=== PATIENT | male | born 1945 | race Caucasian/White ===

== ENCOUNTER → 2023-05-05 10:32 | Outpatient (REF) | payer MEDICARE, OTHER, SELFPAY ==
[2023-05-05 11:05] LABS: % Basophils 0.7 % (0-2); % Eosinophils 3.6 % (0-6); % Immature Granulocytes 0.2 % (0-0.5); % Lymphocytes 19.5 % (20.5-51.1); % Monocytes 8.2 % (1.7-9.3); % Neutrophils 67.8 % (42.2-75.2); Absolute Eosinophils 0.2 10^3/uL (0-0.7); Absolute Lymphocytes 1.1 10^3/uL (1.2-3.4); Absolute Monocytes 0.5 10^3/uL (0.1-0.6); Absolute Neutrophils 3.7 10^3/uL (1.4-6.5); Hematocrit 48.4 % (39.0-52.0); Hemoglobin 16.3 g/dL (13.0-18.0); Mean Corp Hgb Conc. 33.7 g/dL (33.0-37.0); Mean Corpuscular Hgb 30.9 pg (27.0-31.0); Mean Corpuscular Volume 91.7 fL (80.0-94.0); Mean Platelet Volume 9.8 fL (7.4-10.4); Nucleated Red Blood Cells % 0 % (-); Platelet Count 179 10^3/uL (130-400); Red Blood Cell Count 5.28 10^6/uL (4.70-6.10); Red Cell Dist. Width 13.7 % (11.5-14.5); White Blood Cell Count 5.5 10^3/uL (4.8-10.8)
[2023-05-05 11:38] LABS: Glycohemoglobin (HgbA1c) 6.6 % (4.0-5.6)
[2023-05-05 12:24] LABS: ALT (SGPT) 38 U/L (0-50); AST (SGOT) 47 U/L (17-59); Albumin 4.4 g/dl (3.5-5.0); Alkaline Phosphatase 73 U/L (38-126); Blood Urea Nitrogen 22 mg/dl (9-20); Calcium 9.5 mg/dl (8.4-10.2); Carbon Dioxide 25 mmol/L (22-30); Chloride 104 mmol/L (98-107); Glucose 98 mg/dl (70-99); HDL Cholesterol 57 mg/dl; LDL Cholesterol, Calculated 37 mg/dl; Potassium 5.2 mmol/L (3.5-5.1); Sodium 137 mmol/L (135-145); Total Cholesterol 109 mg/dl (50-199); Total Protein 7.6 g/dl (6.3-8.2); Triglyceride 78 mg/dl (10-149); Very Low Density Lipoprotein 15 mg/dl (0-30); eGFR > 60.00
[2023-05-05 12:53] LABS: PSA, Total - Screen 0.92 ng/ml (0.0-4.0)
== END ==
LOC: REG 10:32
PROVIDERS: ATTENDING PHYSICIAN Internal Medicine
DX: E11.40 Type 2 diabetes mellitus with diabetic neuropathy, unspecified (principal); E11.59 Type 2 diabetes mellitus with other circulatory complications; E78.5 Hyperlipidemia, unspecified; E66.3 Overweight; Z12.5 Encounter for screening for malignant neoplasm of prostate; Z00.01 Encounter for general adult medical examination with abnormal findings
CPT/HCPCS: 36415; 80053; 80061; 83036; 85025; G0103

== ENCOUNTER → 2023-06-23 13:57 | Outpatient (REF) | payer MEDICARE, OTHER, SELFPAY | LOC: RAD 13:57 | PROVIDERS: ATTENDING PHYSICIAN Podiatrist Foot Surgery; FAMILY PHYSICIAN Internal Medicine | DX: R22.42 Localized swelling, mass and lump, left lower limb (principal) | CPT/HCPCS: 93971 ==

== ENCOUNTER → 2023-08-18 07:53 | Outpatient (REF) | payer MEDICARE, OTHER, SELFPAY ==
[2023-08-18 08:56] LABS: Glycohemoglobin (HgbA1c) 6.8 % (4.0-5.6)
[2023-08-18 09:11] LABS: ALT (SGPT) 21 U/L (0-50); AST (SGOT) 26 U/L (17-59); Alkaline Phosphatase 76 U/L (38-126); Direct Bilirubin 0.4 mg/dl (0.0-0.4); Glucose 132 mg/dl (70-99); HDL Cholesterol 49 mg/dl; LDL Cholesterol, Calculated 49 mg/dl; Total Bilirubin 0.6 mg/dl (0.2-1.3); Total Cholesterol 117 mg/dl (50-199); Total Protein 7.3 g/dl (6.3-8.2); Triglyceride 97 mg/dl (10-149); Very Low Density Lipoprotein 19 mg/dl (0-30)
== END ==
LOC: REG 07:53
PROVIDERS: ATTENDING PHYSICIAN Internal Medicine
DX: E11.40 Type 2 diabetes mellitus with diabetic neuropathy, unspecified (principal)
CPT/HCPCS: 36415; 80061; 80076; 82947; 83036

== ENCOUNTER → 2023-11-18 07:32 | Outpatient (REF) | payer MEDICARE, OTHER, SELFPAY ==
[2023-11-18 11:05] LABS: ALT (SGPT) 24 U/L (0-50); AST (SGOT) 29 U/L (17-59); Albumin 4.5 g/dl (3.5-5.0); Alkaline Phosphatase 72 U/L (38-126); Direct Bilirubin 0.3 mg/dl (0.0-0.4); Glucose 160 mg/dl (70-99); HDL Cholesterol 54 mg/dl; LDL Cholesterol, Calculated 47 mg/dl; Total Bilirubin 0.7 mg/dl (0.2-1.3); Total Cholesterol 121 mg/dl (50-199); Total Protein 7.4 g/dl (6.3-8.2); Triglyceride 102 mg/dl (10-149); Very Low Density Lipoprotein 20 mg/dl (0-30)
[2023-11-18 12:15] LABS: Glycohemoglobin (HgbA1c) 6.1 % (4.0-5.6)
== END ==
LOC: REG 07:32
PROVIDERS: ATTENDING PHYSICIAN Internal Medicine
DX: E11.40 Type 2 diabetes mellitus with diabetic neuropathy, unspecified (principal); E78.5 Hyperlipidemia, unspecified; I10 Essential (primary) hypertension
CPT/HCPCS: 36415; 80061; 80076; 82947; 83036

== ENCOUNTER → 2024-02-23 09:01 | Outpatient (REF) | payer MEDICARE, OTHER, SELFPAY | LOC: DHVS 09:01 | PROVIDERS: ATTENDING PHYSICIAN Surgery Vascular Surgery; FAMILY PHYSICIAN Internal Medicine; REFERRING PHYSICIAN Student in an Organized Health Care Education/Training Program | DX: I73.9 Peripheral vascular disease, unspecified (principal) | CPT/HCPCS: 93922; 93925 ==

== ENCOUNTER → 2024-03-31 17:12 | Outpatient (REF) | payer MEDICARE, OTHER, SELFPAY ==
[2024-03-31 17:38] LABS: % Basophils 0.3 % (0-2); % Eosinophils 1.7 % (0-6); % Immature Granulocytes 0.4 % (0-0.5); % Lymphocytes 5.1 % (20.5-51.1); % Monocytes 7.6 % (1.7-9.3); % Neutrophils 84.9 % (42.2-75.2); Absolute Eosinophils 0.1 10^3/uL (0-0.7); Absolute Lymphocytes 0.4 10^3/uL (1.2-3.4); Absolute Monocytes 0.6 10^3/uL (0.1-0.6); Absolute Neutrophils 6.1 10^3/uL (1.4-6.5); Hematocrit 48.8 % (39.0-52.0); Hemoglobin 16.6 g/dL (13.0-18.0); Mean Corpuscular Hgb 31.7 pg (27.0-31.0); Mean Corpuscular Volume 93.1 fL (80.0-94.0); Mean Platelet Volume 9.8 fL (7.4-10.4); Nucleated Red Blood Cells % 0 % (-); Platelet Count 164 10^3/uL (130-400); Red Blood Cell Count 5.24 10^6/uL (4.70-6.10); White Blood Cell Count 7.2 10^3/uL (4.8-10.8)
[2024-03-31 17:50] LABS: ALT (SGPT) 21 U/L (0-50); AST (SGOT) 25 U/L (17-59); Albumin 4.3 g/dl (3.5-5.0); Alkaline Phosphatase 60 U/L (38-126); Amylase 64 U/L (30-110); Direct Bilirubin 0.1 mg/dl (0.0-0.4); Lipase 227 U/L (23-300); Total Bilirubin 1.3 mg/dl (0.2-1.3); Total Protein 7.4 g/dl (6.3-8.2)
== END ==
LOC: REG 17:12
PROVIDERS: ATTENDING PHYSICIAN Internal Medicine
DX: R10.13 Epigastric pain (principal)
CPT/HCPCS: 36415; 80076; 82150; 83690; 85025

== ENCOUNTER → 2024-05-11 07:52 | Outpatient (REF) | payer MEDICARE, OTHER, SELFPAY ==
[2024-05-11 08:38] LABS: % Basophils 0.6 % (0-2); % Eosinophils 2.5 % (0-6); % Immature Granulocytes 0.5 % (0-0.5); % Lymphocytes 18.4 % (20.5-51.1); % Monocytes 8.8 % (1.7-9.3); % Neutrophils 69.2 % (42.2-75.2); Absolute Eosinophils 0.2 10^3/uL (0-0.7); Absolute Lymphocytes 1.2 10^3/uL (1.2-3.4); Absolute Monocytes 0.6 10^3/uL (0.1-0.6); Absolute Neutrophils 4.4 10^3/uL (1.4-6.5); Hematocrit 45.8 % (39.0-52.0); Hemoglobin 15.4 g/dL (13.0-18.0); Mean Corp Hgb Conc. 33.6 g/dL (33.0-37.0); Mean Corpuscular Hgb 31.2 pg (27.0-31.0); Mean Corpuscular Volume 92.9 fL (80.0-94.0); Mean Platelet Volume 9.5 fL (7.4-10.4); Nucleated Red Blood Cells % 0 % (-); Platelet Count 195 10^3/uL (130-400); Red Blood Cell Count 4.93 10^6/uL (4.70-6.10); White Blood Cell Count 6.4 10^3/uL (4.8-10.8)
[2024-05-11 09:41] LABS: Glycohemoglobin (HgbA1c) 6.1 % (4.0-5.6)
[2024-05-11 10:40] LABS: Carbon Dioxide 21 mmol/L (22-30); Total Cholesterol 97 mg/dl (50-199); eGFR > 60.00
[2024-05-11 10:50] LABS: ALT (SGPT) 25 U/L (0-50); AST (SGOT) 28 U/L (17-59); Albumin 4.5 g/dl (3.5-5.0); Alkaline Phosphatase 77 U/L (38-126); Blood Urea Nitrogen 28 mg/dl (9-20); Calcium 9.4 mg/dl (8.4-10.2); Chloride 106 mmol/L (98-107); Glucose 117 mg/dl (70-99); HDL Cholesterol 48 mg/dl; LDL Cholesterol, Calculated 26 mg/dl; Potassium 4.4 mmol/L (3.5-5.1); Sodium 140 mmol/L (135-145); Total Protein 7.5 g/dl (6.3-8.2); Triglyceride 116 mg/dl (10-149); Very Low Density Lipoprotein 23 mg/dl (0-30)
[2024-05-11 10:57] LABS: PSA, Total - Screen 0.95 ng/ml (0.0-4.0)
== END ==
LOC: REG 07:52
PROVIDERS: ATTENDING PHYSICIAN Internal Medicine
DX: Z00.01 Encounter for general adult medical examination with abnormal findings (principal); E11.40 Type 2 diabetes mellitus with diabetic neuropathy, unspecified; I10 Essential (primary) hypertension; E78.5 Hyperlipidemia, unspecified; Z12.5 Encounter for screening for malignant neoplasm of prostate
CPT/HCPCS: 36415; 80053; 80061; 83036; 85025; G0103

== ENCOUNTER → 2024-06-03 11:00 | Outpatient (REF) | payer MEDICARE, OTHER, SELFPAY | LOC: RAD 11:00 | PROVIDERS: ATTENDING PHYSICIAN Internal Medicine | DX: M54.16 Radiculopathy, lumbar region (principal) | CPT/HCPCS: 72110 ==

== ENCOUNTER 2024-07-14 10:12 | Emergency (ER) | payer MEDICARE, OTHER, SELFPAY ==
[2024-07-14 10:32] VITALS: BP 159/84
--- NOTE | 2024-07-14 12:01 | ED.MUSCINJ ---
HPI-Injury
General
Chief Complaint: Musculo-Skeletal Complaint
Source: patient
Exam Limitations: none
Time Seen by Provider: 07/14/24 11:38
History of Present Illness-Injury
Initial Injury comments:
78-year-old male presents complaining of severe pain to the neck. It starts at the base of the neck and radiates up to the left side of his skull. It hurts to move his neck. No fever no vision change. No arm pain or numbness. No chest pain or
shortness of breath. He is on Eliquis. No known injury. No other complaints at this time
Past History
Past History
ED Past Medical History: Arrthythmia (Atrial fibrillation), CVA, Hypercholesterolemia, NIDDM and Other (Psoriasis, lumbar disc herniations, kidney stones, BPH, TIA, pneumonia)
ED Past Surgical History: Cholecystectomy, Orthopedic and Urological
Social History
Tobacco: Non-smoker
Alcohol: None
Drug: None
Personal:
Living: with family
Phy Exam
Physical Exam
Physical Exam:
General: Uncomfortable appearing male no acute respiratory distress
HEENT: Normocephalic atraumatic
Musculoskeletal exam: The patient is tender over the paraspinous area mainly on the left of the cervical spine from the base of cervical spine to the base of the skull. He has significantly decreased motion of the neck secondary to his pain
Heart: Regular rate and rhythm
Lungs: Clear no wheeze
Neurologic exam: Normal gait conversing appropriately. Good strength to the upper extremities
Injury Course
Orders/Labs/Results
Orders:
Orders
07/14/24 11:57
Dexamethasone Sod Phosphate [Decadron] 10 mg IV NOW STA
diazePAM [Valium Injection] 5 mg IV NOW STA
MDM/Problems Addressed
Differential Diagnosis Includes:
Neck pain. Consider muscular strain or spasm versus radiculopathy. No rash to suggest shingles. No neurologic deficit otherwise. Will attempt to manage symptoms
Patient had discussion with his family doctor. He has had prednisone in the past. Patient did not feel well during the prednisone course but he is willing to try again secondary to the amount of pain he is in. He does have an appointment with
Yany in 4 days from now.
*Critical Care Note
Total Time (30-74mins, 75-104mins- exclusive of procedures): Not Applicable
Update Note
Update Note:
Patient feeling slightly improved after medicine administered here. Will continue with muscle relaxer and a steroid at home.
Cervical strain versus radiculopathy
Patient has no neurologic deficit otherwise. No indication for any imaging at this time
ED Attending Note
-
Portions of this chart may have been created with voice recognition software.� Occasional wrong word or��sound alike� substitutions may have occurred due to the inherent limitations of voice recognition software.
Discharge Plan
Departure
Patient Disposition: Home (Routine Discharge)
Date of Disposition: 07/14/24
Time of Disposition: 14:21
Patient with high blood pressure during this ER visit?: No
Discharge Problem:
Cervical strain
Prescriptions:
New
methylprednisolone [Medrol (Phill)] 4 mg tablets,dose pack
4 mg PO DAILY Qty: 21 0RF
diazepam [Valium] 5 mg tablet
5 mg PO TID PRN (Reason: spasm) Qty: 10 0RF
No Action
metformin 500 MG tablet
1,000 mg PO BID@0800,1700
allopurinol 300 MG tablet
300 mg PO HS
finasteride 5 MG tablet
5 mg PO DAILY
glimepiride 4 MG tablet
8 mg PO DAILY
atropine 1 DROP drops
1 drp RIGHT EYE DAILY
Eliquis 5 MG tablet
5 mg PO BID
Trulicity 0.75 MG/0.5 ML pen injector
3 mg SQ MO
prednisolone acetate (PF) 5 ML drops,suspension
1 drp RIGHT EYE DAILY
tamsulosin 0.4 MG capsule
0.4 mg PO QPM
pregabalin [Lyrica] 300 mg Capsule
300 mg PO BID@0800,1700
Jardiance 25 mg Tablet
25 mg PO DAILY
simvastatin 20 mg Tablet
20 mg PO HS
Theralith XR 3.75-45-45-49.5 mg Tablet Extended Release
2 tab PO BID
coQ10 (ubiquinol) 100 mg Capsule
100 mg PO HS
amoxicillin-pot clavulanate [Augmentin] 875-125 mg Tablet
1 tab PO BID
Referrals:
Chuck Durand MD [Family Provider] -
Activity Restrictions/Additional Instructions:
Continue with warm compresses. Use muscle relaxer and steroid as directed. Follow-up with your back pain specialist as planned
Interventions
Interventions:
*Risk Screen - Suicide Last Done: 07/14/24 10:32
*General Assessment Last Done: 07/14/24 10:32
*Neglect/Abuse Screening Last Done: 07/14/24 13:49
*ED COVID-19 Vaccine History Last Done: 07/14/24 10:32
ED-Musculoskeletal Assessment Last Done: 07/14/24 13:47
Discharge Date and Time
Print Language: MALTESE
[2024-07-14] MEDS: DECADRON 10 MG IV (13:33)
[2024-07-14] MEDS: VALIUM INJECTION 5 MG IV (13:33)
[2024-07-14 13:48] VITALS: BP 159/79
[2024-07-14 15:00] VITALS: BP 139/72
[2024-07-14 16:00] VITALS: BP 135/75
== END 2024-07-14 16:40 | disposition home or self-care (01) ==
LOC: EMR 10:12
PROVIDERS: EMERGENCY PHYSICIAN Emergency Medicine; FAMILY PHYSICIAN Internal Medicine
DX: S16.1XXA Strain of muscle, fascia and tendon at neck level, initial encounter (principal); X58.XXXA Exposure to other specified factors, initial encounter; I48.91 Unspecified atrial fibrillation; E78.00 Pure hypercholesterolemia, unspecified; E11.9 Type 2 diabetes mellitus without complications; N40.0 Benign prostatic hyperplasia without lower urinary tract symptoms; Z79.01 Long term (current) use of anticoagulants; Z86.73 Personal history of transient ischemic attack (TIA), and cerebral infarction without residual deficits; Z87.442 Personal history of urinary calculi; Z90.49 Acquired absence of other specified parts of digestive tract
CPT/HCPCS: 99282; 96374; 96375

== ENCOUNTER → 2024-07-22 10:30 | Outpatient (REF) | payer MEDICARE, OTHER, SELFPAY | LOC: PAVMRI 10:30 | PROVIDERS: ATTENDING PHYSICIAN Physician Assistant; FAMILY PHYSICIAN Internal Medicine | DX: M54.12 Radiculopathy, cervical region (principal) | CPT/HCPCS: 72141 ==

== ENCOUNTER → 2024-08-29 08:39 | Outpatient (REF) | payer MEDICARE, OTHER, SELFPAY ==
[2024-08-29 10:49] LABS: Glycohemoglobin (HgbA1c) 6.9 % (4.0-5.6)
[2024-08-29 10:53] LABS: ALT (SGPT) 18 U/L (0-50); AST (SGOT) 23 U/L (17-59); Albumin 4.1 g/dl (3.5-5.0); Alkaline Phosphatase 63 U/L (38-126); Direct Bilirubin 0.3 mg/dl (0.0-0.4); Glucose 88 mg/dl (70-99); HDL Cholesterol 63 mg/dl; LDL Cholesterol, Calculated 26 mg/dl; Total Bilirubin 0.7 mg/dl (0.2-1.3); Total Cholesterol 105 mg/dl (50-199); Total Protein 6.9 g/dl (6.3-8.2); Triglyceride 84 mg/dl (10-149); Very Low Density Lipoprotein 16 mg/dl (0-30)
== END ==
LOC: REG 08:39
PROVIDERS: ATTENDING PHYSICIAN Internal Medicine
DX: E11.59 Type 2 diabetes mellitus with other circulatory complications (principal); E66.3 Overweight; E78.5 Hyperlipidemia, unspecified; I10 Essential (primary) hypertension
CPT/HCPCS: 36415; 80061; 80076; 82947; 83036

== ENCOUNTER → 2024-08-30 08:51 | Outpatient (REF) | payer MEDICARE, OTHER, SELFPAY | LOC: RAD 08:51 | PROVIDERS: ATTENDING PHYSICIAN Podiatrist Foot Surgery; FAMILY PHYSICIAN Internal Medicine; REFERRING PHYSICIAN Student in an Organized Health Care Education/Training Program | DX: M86.171 Other acute osteomyelitis, right ankle and foot (principal) | CPT/HCPCS: 78315; A9503 ==

== ENCOUNTER → 2024-09-06 06:53 | Outpatient (REF) | payer MEDICARE, OTHER, SELFPAY | LOC: RAD 06:53 | PROVIDERS: ATTENDING PHYSICIAN Podiatrist Foot Surgery; FAMILY PHYSICIAN Internal Medicine | DX: M86.171 Other acute osteomyelitis, right ankle and foot (principal) | CPT/HCPCS: 78803; A9569 ==

== ENCOUNTER 2024-09-21 03:10 | Inpatient (IN) | payer MEDICARE, OTHER, SELFPAY ==
[2024-09-20 16:44] VITALS: BP 139/66
[2024-09-20 17:08] LABS: Hematocrit 39.4 % (39.0-52.0); Hemoglobin 13.3 g/dL (13.0-18.0); Mean Corp Hgb Conc. 33.8 g/dL (33.0-37.0); Mean Corpuscular Volume 92.5 fL (80.0-94.0); Nucleated Red Blood Cells % 0 % (-); Platelet Count 165 10^3/uL (130-400); Red Cell Dist. Width 13.9 % (11.5-14.5)
[2024-09-20 17:33] LABS: ALT (SGPT) 17 U/L (0-50); AST (SGOT) 17 U/L (17-59); Albumin 4.1 g/dl (3.5-5.0); Alkaline Phosphatase 58 U/L (38-126); Blood Urea Nitrogen 24 mg/dl (9-20); Calcium 9.2 mg/dl (8.4-10.2); Carbon Dioxide 20 mmol/L (22-30); Chloride 106 mmol/L (98-107); Glucose 183 mg/dl (70-99); Potassium 4.4 mmol/L (3.5-5.1); Sodium 135 mmol/L (135-145); Total Protein 7.0 g/dl (6.3-8.2); eGFR > 60.00
--- NOTE | 2024-09-20 20:37 | ED.GENMED ---
Addendum entered and electronically signed by Malick Xie DO 09/21/24 02:21:
78-year-old male with diagnosis of osteomyelitis at cellulitis to his right foot. He is due for an amputation of his fifth metatarsal with Dr. Best. Hospitalist requested formal signout for admission. I was in to see the patient.
Original Note:
History of Present Illness
General
Chief Complaint: Skin Problem
Source: patient
Exam Limitations: none
Time Seen by Provider: 09/20/24 20:12
Nursing documentation reviewed up to this point in time: agreed with
History of Present Illness
History of Present Illness:
Patient to ED for increasing pain, redness, swelling to right foot. He has a small ulceration to right lat foot at distal 5th metatarsal FOllows with Dr. Best. He had an outpatient xray last month that revealed suspected osteomyelitis to site
He states he was in the process of scheduling an amputaton of the 5ht metatarsal with Dr. Best. 2 days ago he reports the pain redness and swelling started. Draining small hema of purulent discharge, would culture obtained. He denies
fever/chills. On eliquis for afib.
Past History
Past History
ED Past Medical History: Arrthythmia (Atrial fibrillation), CVA, Hypercholesterolemia, NIDDM and Other (Psoriasis, lumbar disc herniations, kidney stones, BPH, TIA, pneumonia)
ED Past Surgical History: Cholecystectomy, Orthopedic and Urological
Social History
Tobacco: Non-smoker
Alcohol: None
Drug: None
Personal:
Living: with family
Review of Systems
Review of Systems
Allergies reviewed?: Yes
All Other Systems: ROS reviewed and negative except as documented in HPI and ROS
Constitutional: Reports no symptoms
EENT: Reports no symptoms
Respiratory: Reports no symptoms
Cardiac: Reports no symptoms
ABD/GI: Reports no symptoms
: Reports no symptoms
Musculoskeletal: Reports joint pain (pain to lateral right foot.)
Skin: Reports other (Erythema swelling pain to right lat foot. Non healing wound right lat foot at distal 5th metatarsal.)
Neurological: Reports no symptoms
Psychiatric: Reports no symptoms
Phy Exam
General Physical Exam
General Presentation: mild distress
General age: appears stated age
General Skin: warm and dry
General Habitus: normal
General Mental: alert
Musculoskeletal Exam
Musculoskeletal Exam: neuro vasc intact and other (pain to right foot)
Skin Exam
Skin Exam: other (Erythema swelling right foot. Non healing wound distal lateral right foot)
Psychiatric Exam
Psychiatric Exam: normal mood/affect
Course
Orders/Labs/Results
Orders:
Orders
09/20/24 16:59
Complete Blood Count/With Diff Urgent
Comprehensive Metabolic Panel Urgent
Blood Culture Q20M
JOAN Source: Blood/Venous
Specimen Description:
Comment: Urgent from separate sites. If patient screens positive for possible sepsis
09/20/24 20:37
Vancomycin [Vancocin] 2,000 mg 0.9% Sodium Chloride 500 ml [Nss] 500 ml IV NOW
09/20/24 20:42
Lactic Acid Urgent
Blood Culture Q20M
JOAN Source: Blood/Venous
Specimen Description:
Comment: Urgent from separate sites. If patient screens positive for possible sepsis
Wound Culture [Wound/Abscess/Other Culture] Urgent
JOAN Source: Foot
Specimen Description: Right
Date Specimen was Collected: 09/20/24
Time Specimen was Collected: 20:39
09/20/24 20:56
Foot, Right 3 View [CR Foot - Right Min 3 Views] Urgent
Comment:
Reason For Exam: cellulitis
09/20/24 22:25
Consult Orthopedic [ORTHOPEDIC CONSULT] Urgent
Consulting Provider: Maurisio Julian
Was physician already notified: Yes
Abnormal Lab Results
09/20/24
16:59
WBC 14.3 H 10^3/uL
(4.8-10.8)
RBC 4.26 L 10^6/uL
(4.70-6.10)
MCH 31.2 H pg
(27.0-31.0)
Abs Immat Gran (auto) 0.1 H 10^3/uL
(0-0.05)
Absolute Neuts (auto) 11.8 H 10^3/uL
(1.4-6.5)
Absolute Lymphs (auto) 0.8 L 10^3/uL
(1.2-3.4)
Absolute Monos (auto) 1.5 H 10^3/uL
(0.1-0.6)
Neutrophils % 82.6 H %
(42.2-75.2)
Lymphocytes % 5.6 L %
(20.5-51.1)
Monocytes % 10.4 H %
(1.7-9.3)
Carbon Dioxide 20 L mmol/L
(22-30)
BUN 24 H mg/dl
(9-20)
Glucose 183 H mg/dl
(70-99)
09/20/24 16:59
09/20/24 16:59
Vital Signs
Initial and Last Documented VS:
Initial Vital Signs
Temp Pulse Resp BP Pulse Ox
98.2 F 79 16 139/66 98
09/20/24 16:44 09/20/24 16:44 09/20/24 16:44 09/20/24 16:44 09/20/24 16:44
Last Documented Vital Signs
Temp Pulse Resp BP Pulse Ox
98.2 F 80 16 126/72 96
09/20/24 16:44 09/20/24 20:52 09/20/24 20:52 09/20/24 20:52 09/20/24 20:52
*Radiology
Radiology exam reviewed: radiology read reviewed
*Pulse Oximetry
SaO2: 98
Oxygen Mode of Delivery: Room air
Patient hypoxic: no
*Critical Care Note
Total Time (30-74mins, 75-104mins- exclusive of procedures): Not Applicable
Update Note
Update Note:
Patient to ED with pain redness swelling to right foot. Nonhealing wouond to lateral aspect of right foot at head of 5th metatarsal. Xray completed, suspect worsening osteomyelitis, cellulitis. Will admit to hospitalist service. Antibiotics
started in dept. WOuond culture results are pending.
ED Attending Note
-
Portions of this chart may have been created with voice recognition software.� Occasional wrong word or��sound alike� substitutions may have occurred due to the inherent limitations of voice recognition software.
Discharge Plan
Departure
Patient Disposition: Admit
Date of Disposition: 09/20/24
Time of Disposition: 22:18
Presentation/result/management discussed w/ accepting MD/DO: Hospitalist
Patient with high blood pressure during this ER visit?: No
Condition: Fair
Covid-19: Not Applicable
Discharge Problem:
Cellulitis of foot, Acute osteomyelitis of metatarsal bone
Prescriptions:
No Action
allopurinol 300 MG tablet
300 mg PO HS
finasteride 5 MG tablet
5 mg PO DAILY
glimepiride 4 MG tablet
8 mg PO DAILY
Eliquis 5 MG tablet
5 mg PO BID
tamsulosin 0.4 MG capsule
0.8 mg PO QPM
Jardiance 25 mg Tablet
25 mg PO DAILY
simvastatin 20 mg Tablet
20 mg PO HS
acetaminophen [Tylenol 8 Hour] 650 mg Tablet Extended Release
1,300 mg PO Q8HPRN PRN (Reason: mild pain)
dorzolamide-timolol 22.3-6.8 mg/mL drops
1 drp RIGHT EYE BID
metformin 500 mg tablet extended release 24 hr
1,000 mg PO BID
coenzyme Q10 [CoQ-10] 100 mg Capsule
100 mg PO HS
pregabalin 300 mg capsule
300 mg PO BID
Ozempic 1 mg/dose (4 mg/3 mL) Pen Injector
1 mg SC BYRNES
Referrals:
Chuck Durand MD [Family Provider, Internal Medicine]
Interventions
Interventions:
*Risk Screen - Suicide Last Done: 09/20/24 16:44
*General Assessment Last Done: 09/20/24 19:54
*Neglect/Abuse Screening Last Done: 09/20/24 16:44
*ED- Fall Risk Assessment Last Done: 09/20/24 19:54
*ED COVID-19 Vaccine History Last Done: 09/20/24 19:54
Discharge Date and Time
Print Language: ROMANSH
[2024-09-20 20:52] VITALS: BP 126/72; BMI 30.4
[2024-09-20] MEDS: VANCOCIN 540 MG IV (21:03)
[2024-09-21] VITALS (9 sets, daily range): BP systolic 114–162; BP diastolic 69–85; BMI 28.0
--- NOTE | 2024-09-21 02:45 | HPS.HSE ---
Family Physician
-
Family Physician: Sloan Durand
Chief Complaint
-
RLE swelling
History of Present Illness
78yo M with PMHx of L foot OM s/p toe amputation, gout, BPH, DM, HLD, Afib on Eliquis came with worsening swelling in his R foot. XR showed Soft tissue wound lateral to the right 5th MTP joint and probable acute on chronic OM in the 5th metatarsal.
Patient was previously followed by and planned for eventual amputation by as per his words. Also developed 2days of cough and chills
Medical History
Past Medical History
Past Medical History: Reports Other
Additional Past Medical History:
See HPI
Past Surgical History: Reports Other
Additional Past Surgical History:
See HPI
Social History
Tobacco: Non-smoker
Alcohol: None
Drug: None
Family History
Family History: Not pertinent
Allergies / Home Medications
Allergies reflects when Allergies were last updated in [facility].
Home Medications with original date entered in [facility]
Allergy/Medication List:
Allergies
Allergy/AdvReac Type Severity Reaction Status Date / Time
apple Allergy TONGUE Verified 09/20/24 16:44
SWELLS
gabapentin Allergy 'didn't Verified 09/20/24 16:44
work &
loss of
appetite'
Gadolinium-Containing Allergy Rash Verified 09/20/24 16:44
Contrast Medi
grape Allergy TONGUE Verified 09/20/24 16:44
SWELLS
iohexol Allergy Rash Verified 09/20/24 16:44
peach Allergy TONGUE Verified 09/20/24 16:44
SWELLS
pectin Allergy PATIENT Verified 09/20/24 16:44
DENIES
Home Medications
allopurinol 300 mg tablet 300 mg PO HS Gout 05/28/12
finasteride 5 mg tablet 5 mg PO DAILY Urinary issue 05/28/12
glimepiride 4 mg tablet 8 mg PO DAILY Diabetes 05/29/15
apixaban 5 mg tablet (Eliquis) 5 mg PO BID Blood clot prevention/tx 08/22/18
empagliflozin 25 mg tablet (Jardiance) 25 mg PO DAILY Diabetes 03/05/22
simvastatin 20 mg tablet 20 mg PO HS High cholesterol 03/05/22
tamsulosin 0.4 mg capsule 0.8 mg PO QPM Urinary issue 03/05/22
acetaminophen 650 mg tablet,extended release (Tylenol 8 Hour) 1,300 mg PO Q8HPRN PRN mild pain 09/20/24
coenzyme Q10 100 mg capsule (CoQ-10) 100 mg PO HS 09/20/24
dorzolamide 22.3 mg-timolol 6.8 mg/mL eye drops 1 drp RIGHT EYE BID 09/20/24
metformin 500 mg tablet,extended release 24 hr 1,000 mg PO BID 09/20/24
pregabalin 300 mg capsule 300 mg PO BID 09/20/24
semaglutide 1 mg/dose (4 mg/3 mL) subcutaneous pen injector (Ozempic) 1 mg SC BYRNES 09/20/24
Review of Systems
-
History Source: Patient
A 12 point ROS was completed and negative except as noted: Yes
Musculoskeletal: Reports See HPI
Physical Exam
Vital Signs
Vital Signs
Temp Pulse Resp BP Pulse Ox
100.2 F 80 16 131/69 97
09/20/24 23:30 09/20/24 20:52 09/20/24 20:52 09/21/24 01:00 09/21/24 01:00
Physical Exam
General: Well Nourished, No Apparent Distress and Comfortable
HEENT: NormoCephalic, Anicteric and Moist mucous membranes
Respiratory: Clear; No Wheezes or Crackles
Cardiac: S1/S2 and Regular Rhythm; No Murmur
GI: Soft, Non Tender and Non Distended
Genito-urinary: No costovertebral tender
Musculoskeletal: No Clubbing, No Cyanosis and Edema, Right Lower Extremity
Skin: Warm
Neuro: Awake, Alert, Oriented, AO x 3 and No Motor Deficits
Psych: Calm
Laboratory Results
-
09/20/24 16:59
09/20/24 16:59
Laboratory Results
Lactic Acid 1.4 mmol/L (0.7-2.0) 09/20/24 20:42
Total Bilirubin 1.1 mg/dl (0.2-1.3) 09/20/24 16:59
AST 17 U/L (17-59) 09/20/24 16:59
ALT 17 U/L (0-50) 09/20/24 16:59
Alkaline Phosphatase 58 U/L (38-126) 09/20/24 16:59
Data Reviewed
-
Diagnostic Radiology: Report Reviewed by me
Lab Data: Labs Reviewed by me
Impression/Plan
-
A/P:
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
MRI foot
Vanco/Zosyn
Podiatry consult
Bcx
ESR/CRP for monitoring
#Cough
chest XR
COVID-19 and influenza swab
#Afib, unspecified
Cont Eliquis
tele
#DM type 2 with neuropathy
Insulin SS, hold Metformin, glimeperide, cont Jardiance
cotn Lytica
#BPH
#HLD
#Gout
#Glaucoma
cont meds, watch for retention
DVT ppx eliquis
Full code
I have spent at least 76min admitting the patient
[2024-09-21] MEDS: ZOSYN 50 IV ×4 (03:22→21:28)
[2024-09-21 03:33] LABS: COVID-19 Antigen Negative (Negative)
[2024-09-21] MEDS: TYLENOL 650 MG PO ×3 (04:14→21:28)
--- NOTE | 2024-09-21 04:30 | PTCARENOTE ---
Pt arrived to 419-02 from ED, pullover assist x1 into bed. VSS, AAOx3, 4/10 pain to right 5th toe but denies needing pain meds. Pt oriented to room, call paul in reach. POC reviewed with pt.
[2024-09-21 07:02] LABS: Glucose - Point of Care 133 mg/dl (70-99)
[2024-09-21] MEDS: NOVOLOG FLEXPEN-MODERATE RESISTANCE SC ×3 (07:48→17:21)
[2024-09-21] MEDS: FARXIGA 10 MG PO (07:55)
[2024-09-21] MEDS: ELIQUIS 5 MG PO (07:55)
[2024-09-21] MEDS: PROSCAR 5 MG PO (07:55)
[2024-09-21] MEDS: TIMOPTIC 0.5% OPHTHALMIC SOLUTION 1 DROP RIGHT EYE ×2 (07:56→21:16)
[2024-09-21] MEDS: TRUSOPT 2% OPHTHALMIC SOLUTION 1 DROP RIGHT EYE ×2 (07:56→21:17)
[2024-09-21] MEDS: LYRICA 300 MG PO ×2 (07:56→21:16)
[2024-09-21 08:08] LABS: Hematocrit 37.1 % (39.0-52.0); Hemoglobin 12.5 g/dL (13.0-18.0); Mean Corp Hgb Conc. 33.7 g/dL (33.0-37.0); Mean Corpuscular Volume 91.6 fL (80.0-94.0); Nucleated Red Blood Cells % 0 % (-); Platelet Count 166 10^3/uL (130-400); Red Cell Dist. Width 13.8 % (11.5-14.5)
--- NOTE | 2024-09-21 08:15 | WOUNDNOTE ---
R FOOT (LATERAL 5TH MTH)
--- NOTE | 2024-09-21 08:16 | WOUNDNOTE ---
R FOOT (LATERAL 5TH MTH)
--- NOTE | 2024-09-21 08:18 | WOUNDNOTE ---
[facility] RN note: Patient admitted with osteomyelitis. Patient follows Dr. Jon who is on consult.
See H&P for complete history.
PMH: kidney stone, L ureteral stent, neuropathy (patient wears a brace during ambulation LLE), arthritis, sciatica, DM, osteomyelitis.
Wound Location and type/assessment: Patient admitted with: full thickness diabetic ulcer R lateral 5th MTH with yellow tissue and small purulent drainage. +Diffuse erythema of R foot around ulcer/dorsal foot. +Palpable pedal pulses. He follows
[facility]. 02/2024 Arterial Doppler: R TBI .76, L TBI .61.
Appetite: on 1999 calorie diet.
Pressure redistribution devices in place: [employer] Accumax. Patient moves self in bed. He wears off loading orthotic insert in his R shoe.
Plan: Dressing changed. Heels off bed with pillow. Instructed patient pressure injury prevention measures. Wound to be managed by surgeon. Will sign off, call if needed.
Patient to follow up with Dr. Best and vascular.
[2024-09-21 08:33] LABS: ALT (SGPT) 14 U/L (0-50); AST (SGOT) 15 U/L (17-59); Albumin 3.4 g/dl (3.5-5.0); Alkaline Phosphatase 56 U/L (38-126); Blood Urea Nitrogen 19 mg/dl (9-20); Calcium 8.8 mg/dl (8.4-10.2); Carbon Dioxide 20 mmol/L (22-30); Chloride 109 mmol/L (98-107); Estimated Creatinine Clearance 65 ml/min; Glucose 136 mg/dl (70-99); Potassium 3.5 mmol/L (3.5-5.1); Sodium 138 mmol/L (135-145); Total Protein 6.0 g/dl (6.3-8.2); eGFR > 60.00
[2024-09-21 08:58] LABS: C-Reactive Protein 192.10 mg/L (0.0-10.00)
--- NOTE | 2024-09-21 09:46 | PHA.VAN.IN ---
Assessment
- Assessment
Renal Function: Appears similar to baseline
Concomitant Antimicrobials: piperacillin/tazobactam
- Previous Dosing Experience
Previous Regimen: Vanc 1000mg Q12H
Date of Regimen: August 2018 (6 years prior)
Provided Trough of: 11 - drawn prior to 4th maintenance dose (~11H after previous dose)
Patient's SCR is: Similar to previous dosing experience
Patient's weight is: Similar to previous dosing experience
AUC Dosing Plan
- Dosing Variables
Dosing Weight (kg): 88.5
Dosing CrCl (ml/min): 65
Vd coefficient (L/kg): 0.7
- Empiric Dosing
Initial / Loading Dose: 2000mg - 09/20 21:03
Maintenance Regimen: Vanc 1000mg Q12H starting at 1800
Estimated AUC (mcg*h/mL): 569
Estimated Peak (mcg*h/mL): 32.1
Estimated Trough (mcg/ml): 16.9
Estimated Half Life (H): 11.9
Will start 1000mg Q12H based on current population PK and prior dosing experience
Dosing experience from about 6 years ago but patient's weight and renal function appear relatively similar
May require reduction to Vanc 750mg Q12H
Follow SCR trend
- Monitoring
No levels ordered at this time: consider levels in next few days
Pharmacokinetics Vancomycin I
- -
Patient Age: 78
Patient Sex: Male
Vancomycin Day #: 1
Indication: [facility]
Requesting Provider: Dr. Squires
Pertinent Antimicrobial Allergies:
no pertinent antibiotic allergies
Height / Weight:
Height 5 ft 10 in
Actual Weight 88.507 kg
Pertinent Past Medical History: DM II
- Vital Signs / Lab Results
Temp Pulse Resp BP Pulse Ox
98.0 F 69 18 121/71 99
09/21/24 07:00 09/21/24 07:00 09/21/24 07:00 09/21/24 07:00 09/21/24 07:00
Lab Results - Hematology
09/20/24 09/21/24
16:59 06:48
WBC 14.3 H 12.0 H
Lab Results - Chemistry
09/20/24 09/21/24
16:59 06:48
BUN 24 H 19
Creatinine 1.0 1.0
Estimated Creat Clear 65
Albumin 4.1 3.4 L
09/20/24
20:42
Lactic Acid 1.4
Microbiology Results
09/21/24 02:52 Influenza Types A & B (JONATHON) - Final
Nasal Swab Negative for Influenza A & B, NAAT
Negative results must be combined with clinical observations
and patient history.
Nucleic Acid Amplification test (NAAT)performed on the
[employer] NOW platform.
--- NOTE | 2024-09-21 13:12 | W.PN.UPDATE ---
Update Note
Progress Note Update
Patient with right 5th metatarsal ulceration
-Luekocytosis impoving on ABx
-Prior outpatient bone scans show concern for OM of right 5th met head
-Obtain Right foot MRI
-Likely need for partial 5th ray amputation
-Full consult to follow
[2024-09-21 13:29] LABS: Glucose - Point of Care 126 mg/dl (70-99)
[2024-09-21 13:56] LABS: Glycohemoglobin (HgbA1c) 6.2 % (4.0-5.6)
--- NOTE | 2024-09-21 14:16 | CON.ID ---
Consultation
-
Date/Time Consultation Requested: September 21, 2024 1204
Date/Time Consultation Performed: September 21, 2024 1415
Requesting Provider: Dr. Satish Justice
Performing Provider: Dr. Tania Fuentes
Reason for Consultation: Right foot osteo, bacteremia, pneumonia
Chief Complaint / Past History
Chief Complaint
Right foot redness and swelling
History of Present Illness
78-year-old male with history of diabetes mellitus, A-fib, gout who presented to the hospital on September 20 due to acute onset of right foot edema and erythema. He has a chronic wound on the lateral aspect of his right fifth metatarsal head for several
years. The wound recently opened up. He follows with auto striper Dr. Best. Outpatient bone scan and type of blood cell scan showed osteomyelitis of the right fifth metatarsal head. Yesterday patient noted that his right foot was swollen and
there was redness on the lateral aspect of the foot. He also felt subjective fever and chills. He therefore came to the ER. In the ER temperature one 1.6, white count of 14.3. CRP 192, sed rate of 38. He was started on vancomycin and Zosyn.
The admission blood cultures are now positive for Staphylococcus aureus. Patient also has been having dry cough for the past few days. The chest x-ray in the ER showed patchy parenchymal opacities suspicious for pneumonia. However today's chest
CT did not show pneumonia.
Past History
Additional Past Medical History:
Diabetes mellitus
Neuropathy
Atrial fibrillation
Gout
Dyslipidemia
BPH
Nephrolithiasis
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
Left 5th metatarsal resection (02/2022)
Allergy History:
gabapentin Allergy (Verified 09/20/24 16:44)
'didn't work & loss of appetite'
Gadolinium-Containing Contrast Medi Allergy (Verified 09/20/24 16:44)
Rash
iohexol Allergy (Verified 09/20/24 16:44)
Rash
Medications Reviewed: Yes
Current Antibiotics:
IV vancomycin
Zosyn
Social History
Tobacco: Non-Smoker
Alcohol: None
Drug: None
Family History
Family History: Not Pertinent
Review of Systems
Review of Systems
General: Fever, Chills and Change in Appetite
HEENT: Negative Sinus Problems or Headache
Cardiovascular: Negative Chest Pain
Respiratory: Cough; Negative Dyspnea or Sputum Production
Gasteroenterology: Negative Nausea, Vomiting or Diarrhea
Genital / Urological: Negative Dysuria or Flank Pain
Endocrine: Weakness
All systems: All other systems were reviewed and were negative
Vital Signs
Temp Pulse Resp BP Pulse Ox
98.8 F 86 18 136/76 98
09/21/24 11:00 09/21/24 11:00 09/21/24 11:00 09/21/24 11:00 09/21/24 11:00
Selected Entries
09/21/24
03:05
Temp 101.6 F H
Physical Exam
Physical Exam
Constitutional: No Acute Distress
Eyes: No Conjunctival Hemorrhage and Sclera Anicteric
Cardiovascular: Regular Rate and S1/S2
Pulmonary: Clear
Gastrointestinal: Soft, Distended, Normal Bowel Sounds and Decreased Bowel Sounds
Extremities: Edema (right foot 3+ edema, warm) and Erythema (Right lateral half of foot with bright erythema)
Wound: Other (Right 5th lateral met head wound scant purulent drainage)
Neurological: AO x 3
Lab / Diagnostic Study Results
09/21/24 06:48
09/21/24 06:48
Abs Immat Gran (auto) 0.1 10^3/uL (0-0.05) H 09/21/24 06:48
Absolute Neuts (auto) 9.9 10^3/uL (1.4-6.5) H 09/21/24 06:48
Absolute Lymphs (auto) 0.8 10^3/uL (1.2-3.4) L 09/21/24 06:48
Absolute Monos (auto) 1.1 10^3/uL (0.1-0.6) H 09/21/24 06:48
Absolute Basos (auto) 0.0 10^3/uL (0-0.2) 09/21/24 06:48
Immature Gran % 0.6 % (0-0.5) H 09/21/24 06:48
Neutrophils % 82.2 % (42.2-75.2) H 09/21/24 06:48
Lymphocytes % 6.6 % (20.5-51.1) L 09/21/24 06:48
Monocytes % 9.3 % (1.7-9.3) 09/21/24 06:48
Eosinophils % 1.0 % (0-6) 09/21/24 06:48
Basophils % 0.3 % (0-2) 09/21/24 06:48
ESR 38 mm/hour (0-20) H 09/21/24 06:48
Lactic Acid 1.4 mmol/L (0.7-2.0) 09/20/24 20:42
C-Reactive Protein 192.10 mg/L (0.0-10.00) H 09/21/24 06:48
Microbiology Results
Micro:
09/20/24 16:59 Blood Culture - Preliminary
Blood/Venous Staphylococcus aureus
Gram Stain - Preliminary
09/20/24 20:42 Blood Culture - Preliminary
Blood/Venous Positive culture in progress
Gram Stain - Preliminary
09/21/24 11:38 Blood Culture - Pending
Blood/Venous
09/20/24 20:42 Wound Culture - Pending
Foot - Right Gram Stain - Preliminary
09/21/24 10:53 Blood Culture - Pending
Blood/Venous
09/21/24 05:26 MRSA Screen - Pending
Nose
09/21/24 02:52 Influenza Types A & B (JONATHON) - Final
Nasal Swab Negative for Influenza A & B, NAAT
Negative results must be combined with clinical observations
and patient history.
Nucleic Acid Amplification test (NAAT)performed on the
[employer] platform.
09/21/24 CT chest: Subtle linear densities within the right middle lobe and right lower lobe, compatible with linear atelectasis, new since CT of the abdomen and pelvis of July 05, 2022. There is no evidence of lung consolidation that would be
suggestive of pneumonia. No evidence for lung mass.
09/20/24 Right Foot XRAY: Soft tissue wound lateral to the right 5th MTP joint. Probable acute on chronic osteomyelitis in the 5th metatarsal head and base of the proximal phalanx of the 5th toe with suggestion of a mild interval increase in osseous
erosion since 08/22/2018.
09/06/24 WBC scan right foot: Small amount of increased white blood cell activity in the region of the right 5th metatarsal head which is suggestive of acute osteomyelitis given the focal intensely increased radiopharmaceutical activity in this
region on the bone scan performed 08/30/2024.
Assessment / Plan
# Right 5th met head infected wound cellulitis with underlying osteomyelitis
# MSSA bacteremia - foot source
# Sepsis, fever, leukocytosis due to bacteremia
# DM with neuropathy
- Follow repeat blood cx's.
- For TTE
- Will need right 5th toe ray amputation
- Continue Zosyn.
- DC Vancomycin
# Conditions [employer]
Diabetes mellitus
Neuropathy
Atrial fibrillation
Gout
Dyslipidemia
BPH
Nephrolithiasis
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
Left 5th metatarsal resection (02/2022)
Care Review
Plan reviewed with: Physician (Dr. Justice)
--- NOTE | 2024-09-21 14:54 | W.PN.HOSP.TC ---
Today's Communication/Plan
-
Repeat blood culture
Echocardiogram
Antibiotics per
ID consult
MRI of the right foot
Podiatry evaluation
Assessment / Plan
Assessment / Plan
Impression:
78yo M with PMHx of L foot OM s/p toe amputation, gout, BPH, DM, HLD, Afib on Eliquis came with worsening swelling in his R foot. XR showed Soft tissue wound lateral to the right 5th MTP joint and probable acute on chronic OM in the 5th metatarsal.
Patient was previously followed by and planned for eventual amputation by as per his words. Also developed 2days of cough and chills
Right fifth metatarsal osteomyelitis
Staphylococcal bacteremia
Mild nonproductive cough
Other conditions:
Persistent atrial fibrillation
Anticoagulation with Eliquis
Diabetes type 2 with neuropathy.
BPH
Dyslipidemia
Gout
Glaucoma
Plan:
Right fifth metatarsal osteomyelitis present on preadmission imaging
MRI is pending
Podiatry input appreciated.
Most likely will require metatarsal resection
Staphylococcal bacteremia pending final sensitivities
Patient reports chills day prior to admission.
Repeated blood cultures pending
Echo ordered
Currently on vancomycin and Zosyn
ID consultation
Presentation with mild cough and congestion.
Initial chest x-ray with questionable left lower lobe infiltrate.
CT scan of the chest ordered with concern for septic embolization, although does not confirm any focal infiltrates. Noted lingular atelectasis.
Diabetes type 2 with neuropathy.
Preadmission regimen including Ozempic, Jardiance, metformin, glimepiride
Update hemoglobin A1c pending.
Basal bolus protocol with serial Accu-Cheks.
Hold oral medications except SGLT2 inhibitor
Continue Lyrica
Persistent atrial fibrillation
Not on any arrhythmics or rate control medications prior to presentation
Continue Eliquis
BPH on Flomax
Monitor for retention
Gout on allopurinol
Anticipated Discharge: > 48 hours
Subjective/Interval History
-
Date of Service: September 21, 2024
Objective Data
-
Labs:
Laboratory Results
09/21/24
06:48
WBC 12.0 H
Hgb 12.5 L
Hct 37.1 L
Plt Count 166
Sodium 138
Potassium 3.5
Chloride 109 H
Carbon Dioxide 20 L
BUN 19
Creatinine 1.0
Glucose 136 H
Calcium 8.8
Total Bilirubin 1.1
AST 15 L
ALT 14
Alkaline Phosphatase 56
Vital Signs:
Vital Signs
Temp Pulse Resp BP Pulse Ox
98.8 F 86 18 136/76 98
09/21/24 11:00 09/21/24 11:00 09/21/24 11:00 09/21/24 11:00 09/21/24 11:00
I&O
09/20/24 09/21/24 09/22/24
06:59 06:59 06:59
Intake Total 480 / 480
Output Total 575 / 575
Balance -95 / -95
Physical Exam
-
General: Well Developed and No Apparent Distress
HEENT: Normocephalic, Atraumatic and Moist Mucous Membranes
Respiratory: Clear to Auscultation
Cardiac: Regular Rhythm and S1/S2; Negative Murmur, Rub or Gallop
GI: Soft, Nontender, Nondistended and Normal Bowel Sounds; Negative Organomegaly
Rectal: Deferred by Provider
Musculoskeletal: No Clubbing, No Cyanosis and No Edema
Skin: Negative Rash
Neuro: Nonfocal/Grossly Intact
--- NOTE | 2024-09-21 15:56 | CM ---
Initial assessment completed. Patient is a 78yo M with PMHx of L foot OM s/p toe amputation, gout, BPH, DM, HLD, Afib on Eliquis came with worsening swelling in his R foot.
Patient resides w/ spouse in a 2STH, 3 steps to enter. Patient and spouse reside on the first floor. Patient independent w/ ambulation, no device required. Independent w/ ADLs. Has grab bar in the shower and shower chair. No SNF/HC hx reported.
Patient is due to begin OP therapy next week.
Address, points of contact and insurance verified
PCP: Chuck Durand
Pharmacy: [facility]
Plan: CM will cont to follow for d/c planning
[2024-09-21 17:14] LABS: Glucose - Point of Care 148 mg/dl (70-99)
[2024-09-21] MEDS: FLOMAX 0.8 MG PO (17:23)
[2024-09-21] MEDS: ZYLOPRIM 300 MG PO (21:17)
[2024-09-21] MEDS: LIPITOR 10 MG PO (21:17)
[2024-09-21 21:45] LABS: Glucose - Point of Care 208 mg/dl (70-99)
[2024-09-22] VITALS (13 sets, daily range): BP systolic 100–139; BP diastolic 64–80; PULSE 69; O2SAT 98
[2024-09-22] MEDS: ZOSYN 50 IV ×3 (03:19→21:38)
[2024-09-22] MEDS: ROBITUSSIN 100 MG PO (03:40)
[2024-09-22] MEDS: TYLENOL 650 MG PO (03:41)
[2024-09-22] MEDS: NOVOLOG FLEXPEN-MODERATE RESISTANCE SC ×3 (07:35→17:29)
[2024-09-22] MEDS: FARXIGA 10 MG PO (08:11)
[2024-09-22] MEDS: PROSCAR 5 MG PO (08:11)
[2024-09-22] MEDS: TRUSOPT 2% OPHTHALMIC SOLUTION 1 DROP RIGHT EYE ×2 (08:12→20:22)
[2024-09-22] MEDS: LYRICA 300 MG PO ×2 (08:12→20:20)
[2024-09-22] MEDS: TIMOPTIC 0.5% OPHTHALMIC SOLUTION 1 DROP RIGHT EYE ×2 (08:13→20:21)
[2024-09-22 08:19] LABS: Glucose - Point of Care 148 mg/dl (70-99)
[2024-09-22 08:24] LABS: Hematocrit 37.1 % (39.0-52.0); Hemoglobin 12.7 g/dL (13.0-18.0); Mean Corp Hgb Conc. 34.2 g/dL (33.0-37.0); Mean Corpuscular Volume 90.3 fL (80.0-94.0); Nucleated Red Blood Cells % 0 % (-); Platelet Count 164 10^3/uL (130-400); Red Cell Dist. Width 13.8 % (11.5-14.5)
[2024-09-22 08:55] LABS: Blood Urea Nitrogen 23 mg/dl (9-20); Calcium 8.9 mg/dl (8.4-10.2); Carbon Dioxide 20 mmol/L (22-30); Chloride 108 mmol/L (98-107); Estimated Creatinine Clearance 54 ml/min; Glucose 145 mg/dl (70-99); Potassium 3.5 mmol/L (3.5-5.1); Sodium 138 mmol/L (135-145); eGFR > 60.00
--- NOTE | 2024-09-22 10:26 | W.PN.ID1 ---
Date of Service
Date of Service: September 22, 2024
Today's Communication
Continue Zosyn.
Assessment / Plan
# Right 5th met head infected wound cellulitis with underlying osteomyelitis
# MSSA bacteremia - foot source
# Sepsis, fever, leukocytosis due to bacteremia/osteo
# DM with neuropathy
- Follow repeat blood cx's.
- fever persists
- TTE: no vegetation
- To OR today
- Continue Zosyn.
- Trend temps
# Conditions [employer]
Diabetes mellitus
Neuropathy
Atrial fibrillation
Gout
Dyslipidemia
BPH
Nephrolithiasis
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
Left 5th metatarsal resection (02/2022)
Chief Complaint
-: Fever, Cellulitis and Bacteremia
Subjective / Review of Systems
+ chills with fevers.
Vital Signs / Physical Exam
Vital Signs
Vital Signs
Temp Pulse Resp BP Pulse Ox
97.8 F 74 18 118/64 96
09/22/24 07:55 09/22/24 07:55 09/22/24 07:55 09/22/24 07:55 09/22/24 08:00
Physical Exam
Constitutional: Non-toxic
Eyes: Sclera Anicteric
Cardiovascular: Regular Rate and S1/S2
Pulmonary: Clear
Gastrointestinal: Soft, Non Tender and Non Distended
Extremities: Edema (Right foot) and Erythema (right foot)
Neurological: AO x 3
Objective Data
Lab Data
Lab Results
09/22/24 06:54
09/22/24 06:54
ESR 38 mm/hour (0-20) H 09/21/24 06:48
Estimated Creat Clear 54 ml/min 09/22/24 06:54
Lactic Acid 1.4 mmol/L (0.7-2.0) 09/20/24 20:42
Total Bilirubin 1.1 mg/dl (0.2-1.3) 09/21/24 06:48
AST 15 U/L (17-59) L 09/21/24 06:48
ALT 14 U/L (0-50) 09/21/24 06:48
Alkaline Phosphatase 56 U/L (38-126) 09/21/24 06:48
C-Reactive Protein 192.10 mg/L (0.0-10.00) H 09/21/24 06:48
Most recent labs reviewed.
Micro Results:
09/20/24 20:42 Wound Culture - Preliminary
Foot - Right Staphylococcus aureus
Gram Stain - Preliminary
09/20/24 20:42 Blood Culture - Preliminary
Blood/Venous Positive culture in progress
Gram Stain - Preliminary
09/20/24 16:59 Blood Culture - Preliminary
Blood/Venous Staphylococcus aureus
Gram Stain - Preliminary
09/21/24 05:26 MRSA Screen - Final
Nose No Methicillin Resistant Staphylococcus aureus isolated.
09/21/24 11:38 Blood Culture - Pending
Blood/Venous
09/21/24 10:53 Blood Culture - Pending
Blood/Venous
09/21/24 02:52 Influenza Types A & B (JONATHON) - Final
Nasal Swab Negative for Influenza A & B, NAAT
Negative results must be combined with clinical observations
and patient history.
Nucleic Acid Amplification test (NAAT)performed on the
[employer] platform.
09/21/24 MRI Right LE: Osteomyelitis involving the head of the fifth metatarsal with probable septic fifth metatarsophalangeal joint.
09/21/24 CT chest: Subtle linear densities within the right middle lobe and right lower lobe, compatible with linear atelectasis, new since CT of the abdomen and pelvis of July 05, 2022. There is no evidence of lung consolidation that would be
suggestive of pneumonia. No evidence for lung mass.
09/20/24 Right Foot XRAY: Soft tissue wound lateral to the right 5th MTP joint. Probable acute on chronic osteomyelitis in the 5th metatarsal head and base of the proximal phalanx of the 5th toe with suggestion of a mild interval increase in osseous
erosion since 08/22/2018.
09/06/24 WBC scan right foot: Small amount of increased white blood cell activity in the region of the right 5th metatarsal head which is suggestive of acute osteomyelitis given the focal intensely increased radiopharmaceutical activity in this
region on the bone scan performed 08/30/2024.
--- NOTE | 2024-09-22 10:36 | W.PN.HOSP.TC ---
Today's Communication/Plan
-
Plan for OR today
Continue with IV Zosyn
Weightbearing status per podiatry
Assessment / Plan
Assessment / Plan
Impression:
78yo M with PMHx of L foot OM s/p toe amputation, gout, BPH, DM, HLD, Afib on Eliquis came with worsening swelling in his R foot. XR showed Soft tissue wound lateral to the right 5th MTP joint and probable acute on chronic OM in the 5th metatarsal.
Patient was previously followed by and planned for eventual amputation by as per his words. Also developed 2days of cough and chills
Right fifth metatarsal osteomyelitis
Staphylococcal bacteremia
Mild nonproductive cough
Other conditions:
Persistent atrial fibrillation
Anticoagulation with Eliquis
Diabetes type 2 with neuropathy.
BPH
Dyslipidemia
Gout
Glaucoma
Plan:
Right fifth metatarsal osteomyelitis present on preadmission imaging
MRI R FOOT WITH Osteomyelitis involving the head of the fifth metatarsal with probable septic fifth metatarsophalangeal joint.
Podiatry input appreciated.
Plan for the OR today with partial fifth ray amputation. Plan for stage surgery with second stage plan for 09/26.
Dr. Best following
Staphylococcal bacteremia pending final sensitivities
Patient reports chills day prior to admission.
Repeated blood cultures pending
Echo ordered
Currently on Zosyn. Vancomycin discontinued
ID consultation
Presentation with mild cough and congestion.
Initial chest x-ray with questionable left lower lobe infiltrate.
CT scan of the chest ordered with concern for septic embolization, although does not confirm any focal infiltrates. Noted lingular atelectasis.
Diabetes type 2 with neuropathy.
Preadmission regimen including Ozempic, Jardiance, metformin, glimepiride
Update hemoglobin A1c at 6.2.
Basal bolus protocol with serial Accu-Cheks.
Hold oral medications except SGLT2 inhibitor
Continue Lyrica
Persistent atrial fibrillation
Not on any arrhythmics or rate control medications prior to presentation
Continue Eliquis
BPH on Flomax
Monitor for retention
Gout on allopurinol
Anticipated Discharge: > 48 hours
Subjective/Interval History
-
Date of Service: September 22, 2024
States of intermittent right foot pain
Remains n.p.o. 4 OR today
Objective Data
-
Labs:
Laboratory Results
09/22/24
06:54
WBC 9.3
Hgb 12.7 L
Hct 37.1 L
Plt Count 164
Sodium 138
Potassium 3.5
Chloride 108 H
Carbon Dioxide 20 L
BUN 23 H
Creatinine 1.2
Glucose 145 H
Calcium 8.9
Vital Signs:
Vital Signs
Temp Pulse Resp BP Pulse Ox
97.8 F 74 18 118/64 96
09/22/24 07:55 09/22/24 07:55 09/22/24 07:55 09/22/24 07:55 09/22/24 08:00
I&O
09/21/24 09/22/24 09/23/24
06:59 06:59 06:59
Intake Total 480 / 480 1060 / 1060
Output Total 575 / 575 400 / 400 550 / 550
Balance -95 / -95 660 / 660 -550 / -550
Physical Exam
-
General: Well Developed and No Apparent Distress
HEENT: Normocephalic, Atraumatic and Moist Mucous Membranes
Respiratory: Clear to Auscultation
Cardiac: Regular Rhythm and S1/S2; Negative Murmur, Rub or Gallop
GI: Soft, Nontender, Nondistended and Normal Bowel Sounds; Negative Organomegaly
Rectal: Deferred by Provider
Musculoskeletal: No Clubbing and No Cyanosis
Skin: Rash (R foot erythema and mild swelling noted )
Neuro: Awake, AO x 3 and Nonfocal/Grossly Intact
Psych: Calm
Data Reviewed
-
Total Time Spent with Patient (in minutes): 55
--- NOTE | 2024-09-22 12:29 | PN.CDI ---
CDI
- -
CDI:
Physician Documentation Request
Admit Date: 09/21/24 03:10
Dear Doctor Carlo,
Please review the following and provide your response in the progress notes.
Clinical Indicators:
Pt admitted with Right 5th met head infected wound cellulitis with underlying osteomyelitis on IV Zosyn
Documented per ID consult and progress note 09/22,'MSSA bacteremia - foot source Sepsis, fever, leukocytosis due to bacteremia/osteo...'
On admission Tmax 101.6, WBC 14.3, HR 101
Please clarify which of the following most accurately describes the status of the patient's infection:
Sepsis-POA -Still being monitored/treated
- Systemic manifestations of infection, with 2 or more SIRS criteria which include:
- Fever >100.9 degrees F or hypothermia < 96.8 degrees F
- Leukocytosis - WBC > 12,000 or leukopenia - WBC < 4,000 or > 10% bands
- Tachycardia > 90 beats per minute
- Tachypnea - RR > 20 breaths per minute or PaCO2 , 32mmHg
Source: Merck Manual 2012
Sepsis- Ruled out
Other ( please specify)
Use of terms such as suspected, likely, concern for, or probable (associated with a specific diagnosis that is being evaluated, monitored, or treated as if it exists) are acceptable and can be coded in the inpatient setting, when documented at the
time of discharge.
Thank you,
Arleth Gan RN
CDI Specialist
[place] [facility]
Please use your independent medical judgment in providing your response.
--- NOTE | 2024-09-22 12:40 | PN.CDI ---
CDI
- -
CDI:
Physician Documentation Request
Admit Date: 09/21/24 03:10
Dear Doctor Carlo,
Please review the following and provide your response in the progress notes.
Clinical Indicators:
Pt admitted with Right 5th met head infected wound cellulitis with underlying osteomyelitis on IV Zosyn
Documented per [facility] note 09/21,' Patient admitted with: full thickness diabetic ulcer R lateral 5th MTH with yellow tissue and small purulent drainage. +Diffuse erythema of R foot around ulcer/dorsal foot...Dressing changed. Heels off bed with
pillow....'
Physician documentation of the type and location of wounds is required for compliant documentation. Based on the above clinical findings and your assessment, please provide the following in your progress note:
1. Location of the ulcer/wound, including laterality.
2. Type (etiology) of ulcer/wound:
- Diabetic ulcer
- Non-pressure ulcer
- Other
3. For a non-pressure ulcer, please indicate the depth/severity:
- Limited to the breakdown of skin
- With fat layer exposed
- With necrosis of muscle
- With necrosis of bone
- Other
Use of terms such as suspected, likely, concern for, or probable (associated with a specific diagnosis that is being evaluated, monitored, or treated as if it exists) are acceptable and can be coded in the inpatient setting, when documented at the
time of discharge.
Thank you,
Arleth Gan RN
CDI Specialist
[place] [facility]
Please use your independent medical judgment in providing your response.
*Source: National Pressure Ulcer Advisory Panel (NPUAP)
[2024-09-22] MEDS: ZOSYN IV (14:41)
--- NOTE | 2024-09-22 15:17 | W.PN.UPDATE ---
Update Note
Progress Note Update
Patient s/p Right partial 5th ray amputation for source control
-Return to OR 09/26/24 for Delayed primary closure
-Daily dressing changes
-Continue ABx per ID
-NWB RLE, PT/OT
-Will follow
[2024-09-22 15:30] LABS: Glucose - Point of Care 91 mg/dl (70-99)
--- NOTE | 2024-09-22 15:47 | CM ---
CM reviewed chart, patient for OR today. Plan return to OR 09/26. Will follow for PT/OT recommendations upon discharge.
Plan; OR 09/26, will watch for therapy recommendations
--- NOTE | 2024-09-22 16:48 | PTCARENOTE ---
Pt arrived to 2S in bed. Full assessment completed. R foot DSG maintained, DSG C/D/I. Telemetry applied. Pt with Palpable R PT pulse, foot pink and warm to touch with + cap refill. Pt with decreased sensation to B/L LE's, hx neuropathy. Pt educated
on diet, RLE NWB, and to ring for assistance with ambulation, verbalized understanding. Bed locked and in the lowest position, safety maintained. Oriented to room and call paul. Family at bedside.
[2024-09-22 17:24] LABS: Glucose - Point of Care 106 mg/dl (70-99)
[2024-09-22] MEDS: FLOMAX 0.8 MG PO (17:38)
[2024-09-22 21:33] LABS: Glucose - Point of Care 264 mg/dl (70-99)
[2024-09-22] MEDS: LIPITOR 10 MG PO (21:34)
[2024-09-22] MEDS: ZYLOPRIM 300 MG PO (21:37)
[2024-09-22] MEDS: ULTRAM 50 MG PO (22:58)
[2024-09-23 03:00] VITALS: BP 101/60
[2024-09-23] MEDS: ZOSYN 50 IV ×2 (03:15→09:50)
[2024-09-23 07:10] VITALS: BP 116/69
[2024-09-23 07:40] LABS: Glucose - Point of Care 174 mg/dl (70-99)
[2024-09-23 08:08] LABS: Hematocrit 37.7 % (39.0-52.0); Hemoglobin 12.8 g/dL (13.0-18.0); Mean Corp Hgb Conc. 34.0 g/dL (33.0-37.0); Mean Corpuscular Volume 90.2 fL (80.0-94.0); Nucleated Red Blood Cells % 0 % (-); Platelet Count 198 10^3/uL (130-400); Red Cell Dist. Width 13.6 % (11.5-14.5)
[2024-09-23 08:28] LABS: Blood Urea Nitrogen 26 mg/dl (9-20); Calcium 8.5 mg/dl (8.4-10.2); Carbon Dioxide 23 mmol/L (22-30); Chloride 107 mmol/L (98-107); Estimated Creatinine Clearance 65 ml/min; Glucose 178 mg/dl (70-99); Potassium 4.3 mmol/L (3.5-5.1); Sodium 138 mmol/L (135-145); eGFR > 60.00
--- NOTE | 2024-09-23 09:35 | CM ---
Reviewed the chart notes. Per notes, patient will return to OR 09/26/24 for delayed primary closure. Patient currently NWB RLE. CM continues to be available to patient/family and is monitoring medical plan for needs at discharge.
Plan: Discharge plans will depend on the patient's progress and WB status.
[2024-09-23] MEDS: PROSCAR 5 MG PO (09:51)
[2024-09-23] MEDS: FARXIGA 10 MG PO (09:51)
[2024-09-23] MEDS: LYRICA 300 MG PO ×2 (09:51→19:56)
[2024-09-23] MEDS: TIMOPTIC 0.5% OPHTHALMIC SOLUTION 1 DROP RIGHT EYE ×2 (09:52→19:56)
[2024-09-23] MEDS: TRUSOPT 2% OPHTHALMIC SOLUTION 1 DROP RIGHT EYE ×2 (09:52→19:56)
--- NOTE | 2024-09-23 10:06 | W.PN.ID1 ---
Date of Service
Date of Service: September 23, 2024
Today's Communication
- De-escalate Zosyn to cefazolin 2g IV q8.
Assessment / Plan
# Right 5th met head infected wound cellulitis with underlying osteomyelitis
# MSSA bacteremia - foot source
# s/p Sepsis, fever, leukocytosis due to bacteremia/osteo
# DM with neuropathy
- repeat blood cx's neg to date.
- fever resolved
- TTE: no vegetation
- 09/23/11 s/p s/p openRight partial 5th ray amputation
- For delayed closure next week.
- De-escalate Zosyn to cefazolin 2g IV q8.
Anticipate several weeks of IV cefazolin.
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
Diabetes mellitus
Neuropathy
Atrial fibrillation
Gout
Dyslipidemia
BPH
Nephrolithiasis
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
Left 5th metatarsal resection (02/2022)
Chief Complaint
-: Fever, Cellulitis and Bacteremia
Subjective / Review of Systems
No further chills.
Vital Signs / Physical Exam
Vital Signs
Vital Signs
Temp Pulse Resp BP Pulse Ox
97.7 F 67 18 116/69 97
09/23/24 07:10 09/23/24 07:10 09/23/24 07:10 09/23/24 07:10 09/23/24 07:10
Physical Exam
Constitutional: No Acute Distress and Comfortable
Cardiovascular: Regular Rate and S1/S2
Pulmonary: Clear
Gastrointestinal: Soft, Non Tender and Non Distended
Genito-Urinary: Negative CVA Tenderness
Extremities: Negative Edema
Wound: Other (R Foot dressing dry. )
Neurological: AO x 3
Objective Data
Lab Data
Lab Results
09/23/24 07:35
09/23/24 07:35
ESR 38 mm/hour (0-20) H 09/21/24 06:48
Estimated Creat Clear 65 ml/min 09/23/24 07:35
Lactic Acid 1.4 mmol/L (0.7-2.0) 09/20/24 20:42
Total Bilirubin 1.1 mg/dl (0.2-1.3) 09/21/24 06:48
AST 15 U/L (17-59) L 09/21/24 06:48
ALT 14 U/L (0-50) 09/21/24 06:48
Alkaline Phosphatase 56 U/L (38-126) 09/21/24 06:48
C-Reactive Protein 192.10 mg/L (0.0-10.00) H 09/21/24 06:48
Most recent labs reviewed.
Micro Results:
09/20/24 20:42 Blood Culture - Preliminary
Blood/Venous S aureus-Methicillin Sensitive
Gram Stain - Preliminary
09/20/24 16:59 Blood Culture - Final
Blood/Venous S aureus-Methicillin Sensitive
Gram Stain - Final
09/20/24 20:42 Wound Culture - Preliminary
Foot - Right S aureus-Methicillin Sensitive
Gram Stain - Preliminary
09/22/24 14:45 Wound Culture - Pending
Toe Gram Stain - Preliminary
09/22/24 14:45 Anaerobic Culture - Pending
Toe
09/21/24 11:38 Blood Culture - Preliminary
Blood/Venous No Growth in 24 hours- Final report to follow
09/21/24 10:53 Blood Culture - Preliminary
Blood/Venous No Growth in 24 hours- Final report to follow
09/21/24 05:26 MRSA Screen - Final
Nose No Methicillin Resistant Staphylococcus aureus isolated.
09/21/24 02:52 Influenza Types A & B (JONATHON) - Final
Nasal Swab Negative for Influenza A & B, NAAT
Negative results must be combined with clinical observations
and patient history.
Nucleic Acid Amplification test (NAAT)performed on the
[employer] platform.
09/21/24 MRI Right LE: Osteomyelitis involving the head of the fifth metatarsal with probable septic fifth metatarsophalangeal joint.
09/21/24 CT chest: Subtle linear densities within the right middle lobe and right lower lobe, compatible with linear atelectasis, new since CT of the abdomen and pelvis of July 05, 2022. There is no evidence of lung consolidation that would be
suggestive of pneumonia. No evidence for lung mass.
09/20/24 Right Foot XRAY: Soft tissue wound lateral to the right 5th MTP joint. Probable acute on chronic osteomyelitis in the 5th metatarsal head and base of the proximal phalanx of the 5th toe with suggestion of a mild interval increase in osseous
erosion since 08/22/2018.
09/06/24 WBC scan right foot: Small amount of increased white blood cell activity in the region of the right 5th metatarsal head which is suggestive of acute osteomyelitis given the focal intensely increased radiopharmaceutical activity in this
region on the bone scan performed 08/30/2024.
--- NOTE | 2024-09-23 10:18 | W.PN.HOSP.TC ---
Addendum entered and electronically signed by Gilbert Matos MD 09/23/24 13:08:
Right fifth metatarsal diabetic ulcer with drainage
Sepsis POA
Original Note:
Today's Communication/Plan
-
Secondary closure of surgery 09/26
Continue with IV cefazolin
PT
Assessment / Plan
Assessment / Plan
Impression:
78yo M with PMHx of L foot OM s/p toe amputation, gout, BPH, DM, HLD, Afib on Eliquis came with worsening swelling in his R foot. XR showed Soft tissue wound lateral to the right 5th MTP joint and probable acute on chronic OM in the 5th metatarsal.
Patient was previously followed by and planned for eventual amputation by as per his words. Also developed 2days of cough and chills
Right fifth metatarsal osteomyelitis
Methicillin sensitive staphylococcal bacteremia
Mild nonproductive cough
Other conditions:
Persistent atrial fibrillation
Anticoagulation with Eliquis
Diabetes type 2 with neuropathy.
BPH
Dyslipidemia
Gout
Glaucoma
Plan:
Right fifth metatarsal osteomyelitis present on preadmission imaging
MRI R FOOT WITH Osteomyelitis involving the head of the fifth metatarsal with probable septic fifth metatarsophalangeal joint.
Podiatry input appreciated.
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 Plan for stage surgery with second stage plan for 09/26.
Nonweightbearing to right lower extremity. Pain control.
Dr. Best following
Staphylococcal bacteremia sensitivity noted. Wound culture also with staphylococca.
Patient reports chills day prior to admission.
Repeated blood cultures are negative so far
Echo noted.
Vancomycin and Zosyn discontinued per antibiotic de-escalated to cefazolin.
ID consultation
Presentation with mild cough and congestion.
Initial chest x-ray with questionable left lower lobe infiltrate.
CT scan of the chest ordered with concern for septic embolization, although does not confirm any focal infiltrates. Noted lingular atelectasis.
Diabetes type 2 with neuropathy.
Preadmission regimen including Ozempic, Jardiance, metformin, glimepiride
Update hemoglobin A1c at 6.2.
Basal bolus protocol with serial Accu-Cheks.
Hold oral medications except SGLT2 inhibitor
Continue Lyrica
Persistent atrial fibrillation
Not on any arrhythmics or rate control medications prior to presentation
Continue Eliquis
BPH on Flomax
Monitor for retention
Gout on allopurinol
DVT prophylaxis continue with Eliquis
Anticipated Discharge: > 48 hours
Subjective/Interval History
-
Date of Service: September 23, 2024
States some mild pain at the surgical site
States feeling significantly better compared to admission
States his appetite is improving
Objective Data
-
Labs:
Laboratory Results
09/23/24
07:35
WBC 8.0
Hgb 12.8 L
Hct 37.7 L
Plt Count 198 D
Sodium 138
Potassium 4.3
Chloride 107
Carbon Dioxide 23
BUN 26 H
Creatinine 1.0
Glucose 178 H
Calcium 8.5
Vital Signs:
Vital Signs
Temp Pulse Resp BP Pulse Ox
97.7 F 67 18 116/69 97
09/23/24 07:10 09/23/24 07:10 09/23/24 07:10 09/23/24 07:10 09/23/24 07:10
I&O
09/22/24 09/23/24 09/24/24
06:59 06:59 06:59
Intake Total 1060 / 1060 1780 / 1780
Output Total 400 / 400 550 / 550
Balance 660 / 660 1230 / 1230
Physical Exam
-
General: Well Developed and No Apparent Distress
HEENT: Normocephalic, Atraumatic and Moist Mucous Membranes
Respiratory: Clear to Auscultation
Cardiac: Regular Rhythm and S1/S2; Negative Murmur, Rub or Gallop
GI: Soft, Nontender, Nondistended and Normal Bowel Sounds; Negative Organomegaly
Rectal: Deferred by Provider
Musculoskeletal: No Clubbing and No Cyanosis
Skin: Other (Right foot covered in surgical dressing. Intact sensation to the toes.)
Neuro: Awake, AO x 3 and Nonfocal/Grossly Intact
Psych: Calm
[2024-09-23] MEDS: NOVOLOG FLEXPEN-MODERATE RESISTANCE 1 UNITS SC ×2 (10:32→13:27)
[2024-09-23 11:15] VITALS: BP 115/76
[2024-09-23 12:55] LABS: Glucose - Point of Care 185 mg/dl (70-99)
[2024-09-23] MEDS: ANCEF 10 IV ×2 (13:28→21:53)
[2024-09-23 15:24] VITALS: BP 120/86
[2024-09-23 15:38] VITALS: BP 127/74; PULSE 81; O2SAT 94
[2024-09-23 17:25] LABS: Glucose - Point of Care 211 mg/dl (70-99)
[2024-09-23] MEDS: NOVOLOG FLEXPEN-MODERATE RESISTANCE 3 UNITS SC (17:44)
[2024-09-23] MEDS: FLOMAX 0.8 MG PO (17:46)
[2024-09-23 21:39] LABS: Glucose - Point of Care 178 mg/dl (70-99)
[2024-09-23] MEDS: LIPITOR 10 MG PO (21:53)
[2024-09-23] MEDS: ZYLOPRIM 300 MG PO (21:53)
[2024-09-23 23:00] VITALS: BP 112/69
[2024-09-24 03:17] VITALS: BP 113/65
[2024-09-24] MEDS: ANCEF 10 IV ×3 (05:21→21:19)
[2024-09-24 06:23] LABS: Hematocrit 36.7 % (39.0-52.0); Hemoglobin 12.4 g/dL (13.0-18.0); Mean Corp Hgb Conc. 33.8 g/dL (33.0-37.0); Mean Corpuscular Volume 90.8 fL (80.0-94.0); Nucleated Red Blood Cells % 0 % (-); Platelet Count 216 10^3/uL (130-400); Red Cell Dist. Width 13.3 % (11.5-14.5)
[2024-09-24 06:47] LABS: Blood Urea Nitrogen 27 mg/dl (9-20); Calcium 9.0 mg/dl (8.4-10.2); Carbon Dioxide 24 mmol/L (22-30); Chloride 107 mmol/L (98-107); Estimated Creatinine Clearance 59 ml/min; Glucose 186 mg/dl (70-99); Potassium 4.0 mmol/L (3.5-5.1); Sodium 139 mmol/L (135-145); eGFR > 60.00
[2024-09-24 07:40] VITALS: BP 116/62
[2024-09-24 07:41] LABS: Glucose - Point of Care 154 mg/dl (70-99)
[2024-09-24] MEDS: FARXIGA 10 MG PO (07:48)
[2024-09-24] MEDS: LYRICA 300 MG PO ×2 (07:48→21:17)
[2024-09-24] MEDS: TIMOPTIC 0.5% OPHTHALMIC SOLUTION 1 DROP RIGHT EYE ×2 (07:49→21:19)
[2024-09-24] MEDS: PROSCAR 5 MG PO (07:49)
[2024-09-24] MEDS: TRUSOPT 2% OPHTHALMIC SOLUTION 1 DROP RIGHT EYE ×2 (07:49→21:19)
[2024-09-24] MEDS: NOVOLOG FLEXPEN-MODERATE RESISTANCE 1 UNITS SC (07:49)
--- NOTE | 2024-09-24 07:56 | W.PN.ID1 ---
Date of Service
Date of Service: September 24, 2024
Today's Communication
Continue cefazolin
Assessment / Plan
# Right 5th met head infected wound cellulitis with underlying osteomyelitis
# MSSA bacteremia - foot source
# s/p Sepsis, fever, leukocytosis due to bacteremia/osteo
# DM with neuropathy
- repeat blood cx's neg to date.
- fever resolved
- TTE: no vegetation
- 09/23/11 s/p s/p openRight partial 5th ray amputation
- For delayed closure Thursday.
- OR foot cx MSSA
- Continue cefazolin 2g IV q8 (d4).
Anticipate several weeks of IV cefazolin.
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
Diabetes mellitus
Neuropathy
Atrial fibrillation
Gout
Dyslipidemia
BPH
Nephrolithiasis
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
Left 5th metatarsal resection (02/2022)
Chief Complaint
-: Cellulitis and Bacteremia
Subjective / Review of Systems
Feeling better
Vital Signs / Physical Exam
Vital Signs
Vital Signs
Temp Pulse Resp BP Pulse Ox
97.9 F 66 16 113/65 97
09/24/24 03:17 09/24/24 03:17 09/24/24 03:17 09/24/24 03:17 09/24/24 03:17
Physical Exam
Constitutional: No Acute Distress and Comfortable
Cardiovascular: Regular Rate and S1/S2
Pulmonary: Clear
Gastrointestinal: Soft, Non Tender and Non Distended
Genito-Urinary: Negative CVA Tenderness
Extremities: Negative Edema
Wound: Other (R Foot dressing dry. )
Neurological: AO x 3
Objective Data
Lab Data
Lab Results
09/24/24 06:00
09/24/24 06:00
ESR 38 mm/hour (0-20) H 09/21/24 06:48
Estimated Creat Clear 59 ml/min 09/24/24 06:00
Lactic Acid 1.4 mmol/L (0.7-2.0) 09/20/24 20:42
Total Bilirubin 1.1 mg/dl (0.2-1.3) 09/21/24 06:48
AST 15 U/L (17-59) L 09/21/24 06:48
ALT 14 U/L (0-50) 09/21/24 06:48
Alkaline Phosphatase 56 U/L (38-126) 09/21/24 06:48
C-Reactive Protein 192.10 mg/L (0.0-10.00) H 09/21/24 06:48
Most recent labs reviewed.
Micro Results:
09/21/24 11:38 Blood Culture - Preliminary
Blood/Venous No Growth in 48 hours- Final report to follow
09/22/24 14:45 Anaerobic Culture - Preliminary
Toe Culture pending. Anaerobic cultures are examined after 3
days incubation. Additional information to follow.
09/22/24 14:45 Wound Culture - Preliminary
Toe S aureus-Methicillin Sensitive
Gram Stain - Preliminary
09/21/24 10:53 Blood Culture - Preliminary
Blood/Venous No Growth in 48 hours- Final report to follow
09/20/24 20:42 Blood Culture - Preliminary
Blood/Venous S aureus-Methicillin Sensitive
Gram Stain - Preliminary
09/20/24 16:59 Blood Culture - Final
Blood/Venous S aureus-Methicillin Sensitive
Gram Stain - Final
09/20/24 20:42 Wound Culture - Preliminary
Foot - Right S aureus-Methicillin Sensitive
Gram Stain - Preliminary
09/21/24 05:26 MRSA Screen - Final
Nose No Methicillin Resistant Staphylococcus aureus isolated.
09/21/24 02:52 Influenza Types A & B (JONATHON) - Final
Nasal Swab Negative for Influenza A & B, NAAT
Negative results must be combined with clinical observations
and patient history.
Nucleic Acid Amplification test (NAAT)performed on the
[employer] platform.
09/21/24 MRI Right LE: Osteomyelitis involving the head of the fifth metatarsal with probable septic fifth metatarsophalangeal joint.
09/21/24 CT chest: Subtle linear densities within the right middle lobe and right lower lobe, compatible with linear atelectasis, new since CT of the abdomen and pelvis of July 05, 2022. There is no evidence of lung consolidation that would be
suggestive of pneumonia. No evidence for lung mass.
09/20/24 Right Foot XRAY: Soft tissue wound lateral to the right 5th MTP joint. Probable acute on chronic osteomyelitis in the 5th metatarsal head and base of the proximal phalanx of the 5th toe with suggestion of a mild interval increase in osseous
erosion since 08/22/2018.
09/06/24 WBC scan right foot: Small amount of increased white blood cell activity in the region of the right 5th metatarsal head which is suggestive of acute osteomyelitis given the focal intensely increased radiopharmaceutical activity in this
region on the bone scan performed 08/30/2024.
--- NOTE | 2024-09-24 08:17 | W.PN.HOSP.TC ---
Today's Communication/Plan
-
c/w Eliquis
IV Abx
Assessment / Plan
Assessment / Plan
Physical Exam
-
General: Well Developed and No Apparent Distress
HEENT: Normocephalic, Atraumatic and Moist Mucous Membranes
Respiratory: Clear to Auscultation
Cardiac: Regular Rhythm and S1/S2; Negative Murmur, Rub or Gallop
GI: Soft, Nontender, Nondistended and Normal Bowel Sounds; Negative Organomegaly
Rectal: No bleeding
Musculoskeletal: No Clubbing and No Cyanosis
Skin: Other (Right foot covered in surgical dressing. Intact sensation to the toes.)
Neuro: Awake, AO x 3 and Nonfocal/Grossly Intact
Psych: Calm
Impression:
78yo M with PMHx of L foot OM s/p toe amputation, gout, BPH, DM, HLD, Afib on Eliquis came with worsening swelling in his R foot. XR showed Soft tissue wound lateral to the right 5th MTP joint and probable acute on chronic OM in the 5th metatarsal.
Patient was previously followed by and planned for eventual amputation by as per his words. Also developed 2days of cough and chills
Right fifth metatarsal osteomyelitis
Methicillin sensitive staphylococcal bacteremia
Mild nonproductive cough
Other conditions:
Persistent atrial fibrillation
Anticoagulation with Eliquis
Diabetes type 2 with neuropathy.
BPH
Dyslipidemia
Gout
Glaucoma
Plan:
Right fifth metatarsal osteomyelitis present on preadmission imaging
MRI R FOOT WITH Osteomyelitis involving the head of the fifth metatarsal with probable septic fifth metatarsophalangeal joint.
Podiatry input appreciated.
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 Plan for stage surgery with second stage plan for 09/26.
Nonweightbearing to right lower extremity. Pain control.
Dr. Best following
Normal WBC
Staphylococcal bacteremia sensitivity noted. Wound culture also with staphylococcal.
Patient reported chills day prior to admission.
Repeated blood cultures are negative so far
Afebrile Normal WBC
Echo : no evidence of vegetation seen
Vancomycin and Zosyn discontinued per antibiotic de-escalated to cefazolin.
ID consultation
Presentation with mild cough and congestion.
Initial chest x-ray with questionable left lower lobe infiltrate.
CT scan of the chest ordered with concern for septic embolization, although does not confirm any focal infiltrates. Noted lingular atelectasis.
Diabetes type 2 with neuropathy.
Preadmission regimen including Ozempic, Jardiance, metformin, glimepiride
Update hemoglobin A1c at 6.2.
Basal bolus protocol with serial Accu-Cheks.
Hold oral medications except SGLT2 inhibitor
Continue Lyrica
Persistent atrial fibrillation
Not on any arrhythmics or rate control medications prior to presentation
Continue Eliquis
BPH on Flomax and Proscar
Monitor for retention
Gout on allopurinol
DVT prophylaxis continue with Eliquis
Total time spent to see the patient, examine the patient, review data and lab result, discuss treatment plan with patient, nursing staff around 55 minutes
Anticipated Discharge: > 48 hours
Subjective/Interval History
-
Date of Service: September 24, 2024
No chest pain
No leg pain
Slept well
Objective Data
-
Labs:
Laboratory Results
09/24/24
06:00
WBC 6.5
Hgb 12.4 L
Hct 36.7 L
Plt Count 216
Sodium 139
Potassium 4.0
Chloride 107
Carbon Dioxide 24
BUN 27 H
Creatinine 1.1
Glucose 186 H
Calcium 9.0
Vital Signs:
Vital Signs
Temp Pulse Resp BP Pulse Ox
97.6 F 65 16 116/62 98
09/24/24 07:40 09/24/24 07:40 09/24/24 07:40 09/24/24 07:40 09/24/24 07:40
I&O
09/23/24 09/24/24 09/25/24
06:59 06:59 06:59
Intake Total 1780 / 1780 620 / 620
Output Total 550 / 550
Balance 1230 / 1230 620 / 620
[2024-09-24 12:01] LABS: Glucose - Point of Care 205 mg/dl (70-99)
[2024-09-24] MEDS: NOVOLOG FLEXPEN-MODERATE RESISTANCE 3 UNITS SC (12:06)
[2024-09-24 15:19] VITALS: BP 114/69; BP 141/69; PULSE 66; O2SAT 97
[2024-09-24 16:00] VITALS: BP 123/68
[2024-09-24 17:05] LABS: Glucose - Point of Care 254 mg/dl (70-99)
[2024-09-24] MEDS: NOVOLOG FLEXPEN-MODERATE RESISTANCE 5 UNITS SC (17:07)
[2024-09-24] MEDS: FLOMAX 0.8 MG PO (17:08)
[2024-09-24] MEDS: ZYLOPRIM 300 MG PO (21:19)
[2024-09-24] MEDS: LIPITOR 10 MG PO (21:20)
[2024-09-24] MEDS: TYLENOL 650 MG PO (21:25)
[2024-09-24 22:03] LABS: Glucose - Point of Care 196 mg/dl (70-99)
[2024-09-24 23:15] VITALS: BP 113/69
[2024-09-25] MEDS: ANCEF 10 IV ×3 (05:34→21:14)
[2024-09-25] MEDS: LYRICA 300 MG PO ×2 (07:40→21:12)
[2024-09-25] MEDS: PROSCAR 5 MG PO (07:40)
[2024-09-25] MEDS: FARXIGA 10 MG PO (07:40)
[2024-09-25] MEDS: TIMOPTIC 0.5% OPHTHALMIC SOLUTION 1 DROP RIGHT EYE ×2 (07:43→21:14)
[2024-09-25] MEDS: TRUSOPT 2% OPHTHALMIC SOLUTION 1 DROP RIGHT EYE ×2 (07:43→21:14)
[2024-09-25] MEDS: NOVOLOG FLEXPEN-MODERATE RESISTANCE 1 UNITS SC (07:52)
[2024-09-25 07:53] LABS: Glucose - Point of Care 177 mg/dl (70-99)
[2024-09-25] MEDS: MIRALAX 17 GRAMS PO (07:54)
[2024-09-25 08:05] VITALS: BP 135/75
--- NOTE | 2024-09-25 08:27 | W.PN.HOSP.TC ---
Today's Communication/Plan
-
.
Assessment / Plan
Assessment / Plan
Physical Exam
-
General: Well Developed and No Apparent Distress
HEENT: Normocephalic, Atraumatic and Moist Mucous Membranes
Respiratory: Clear to Auscultation
Cardiac: Regular Rhythm and S1/S2; Negative Murmur, Rub or Gallop
GI: Soft, Nontender, Nondistended and Normal Bowel Sounds; Negative Organomegaly
Rectal: No bleeding
Musculoskeletal: No Clubbing and No Cyanosis
Skin: Other (Right foot covered in surgical dressing. Intact sensation to the toes.)
Neuro: Awake, AO x 3 and Nonfocal/Grossly Intact
Psych: Calm
Impression:
78yo M with PMHx of L foot OM s/p toe amputation, gout, BPH, DM, HLD, Afib on Eliquis came with worsening swelling in his R foot. XR showed Soft tissue wound lateral to the right 5th MTP joint and probable acute on chronic OM in the 5th metatarsal.
Patient was previously followed by and planned for eventual amputation by as per his words. Also developed 2days of cough and chills
Right fifth metatarsal osteomyelitis
Methicillin sensitive staphylococcal bacteremia
Mild nonproductive cough
Other conditions:
Persistent atrial fibrillation
Anticoagulation with Eliquis
Diabetes type 2 with neuropathy.
BPH
Dyslipidemia
Gout
Glaucoma
Plan:
Right fifth metatarsal osteomyelitis present on preadmission imaging
MRI R FOOT WITH Osteomyelitis involving the head of the fifth metatarsal with probable septic fifth metatarsophalangeal joint.
Podiatry input appreciated.
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 Plan for stage surgery with second stage plan for 09/26.
Nonweightbearing to right lower extremity. Pain control.
Dr. Best following
Normal WBC
Staphylococcal bacteremia sensitivity noted. Wound culture also with staphylococcal.
Patient reported chills day prior to admission.
Repeated blood cultures are negative so far
Afebrile Normal WBC
Echo : no evidence of vegetation seen
Vancomycin and Zosyn discontinued per antibiotic de-escalated to cefazolin.
ID consultation
Presentation with mild cough and congestion.
Initial chest x-ray with questionable left lower lobe infiltrate.
CT scan of the chest ordered with concern for septic embolization, although does not confirm any focal infiltrates. Noted lingular atelectasis.
Diabetes type 2 with neuropathy.
Preadmission regimen including Ozempic, Jardiance, metformin, glimepiride
Update hemoglobin A1c at 6.2.
Basal bolus protocol with serial Accu-Cheks.
Hold oral medications except SGLT2 inhibitor
Continue Lyrica
Persistent atrial fibrillation
Not on any arrhythmics or rate control medications prior to presentation
Continue Eliquis
BPH on Flomax and Proscar
Monitor for retention
Gout on allopurinol
DVT prophylaxis continue with Eliquis
Total time spent to see the patient, examine the patient, review data and lab result, discuss treatment plan with patient, nursing staff around 55 minutes
Anticipated Discharge: > 48 hours
Subjective/Interval History
-
Date of Service: September 25, 2024
No chest pain
No sob
No fevers
Objective Data
-
Vital Signs:
Vital Signs
Temp Pulse Resp BP Pulse Ox
98.2 F 73 18 113/69 97
09/24/24 23:15 09/24/24 23:15 09/24/24 23:15 09/24/24 23:15 09/24/24 23:15
I&O
09/24/24 09/25/24 09/26/24
06:59 06:59 06:59
Intake Total 620 / 620 1226 / 1226
Balance 620 / 620 1226 / 1226
--- NOTE | 2024-09-25 10:28 | W.PN.ID1 ---
Date of Service
Date of Service: September 25, 2024
Today's Communication
Continue cefazolin.
Assessment / Plan
# Right 5th met head infected wound cellulitis with underlying osteomyelitis
# MSSA bacteremia - foot source
# s/p Sepsis, fever, leukocytosis due to bacteremia/osteo
# DM with neuropathy
- repeat blood cx's neg to date.
- fever resolved
- TTE: no vegetation
- 09/23/11 s/p s/p openRight partial 5th ray amputation
- For delayed closure Thursday.
- OR foot cx MSSA
- Continue cefazolin 2g IV q8 (d5).
Anticipate several weeks of IV cefazolin.
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
Diabetes mellitus
Neuropathy
Atrial fibrillation
Gout
Dyslipidemia
BPH
Nephrolithiasis
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
Left 5th metatarsal resection (02/2022)
Chief Complaint
-: Cellulitis and Bacteremia
Subjective / Review of Systems
Feels well.
Vital Signs / Physical Exam
Vital Signs
Vital Signs
Temp Pulse Resp BP Pulse Ox
98.6 F 77 16 135/75 97
09/25/24 08:05 09/25/24 08:05 09/25/24 08:05 09/25/24 08:05 09/25/24 08:05
Physical Exam
Constitutional: No Acute Distress and Comfortable
Cardiovascular: Regular Rate and S1/S2
Pulmonary: Clear
Gastrointestinal: Soft, Non Tender and Non Distended
Genito-Urinary: Negative CVA Tenderness
Extremities: Negative Edema
Wound: Other (R Foot dressing dry. )
Neurological: AO x 3
Objective Data
Lab Data
Lab Results
09/24/24 06:00
09/24/24 06:00
ESR 38 mm/hour (0-20) H 09/21/24 06:48
Estimated Creat Clear 59 ml/min 09/24/24 06:00
Lactic Acid 1.4 mmol/L (0.7-2.0) 09/20/24 20:42
Total Bilirubin 1.1 mg/dl (0.2-1.3) 09/21/24 06:48
AST 15 U/L (17-59) L 09/21/24 06:48
ALT 14 U/L (0-50) 09/21/24 06:48
Alkaline Phosphatase 56 U/L (38-126) 09/21/24 06:48
C-Reactive Protein 192.10 mg/L (0.0-10.00) H 09/21/24 06:48
Most recent labs reviewed.
Micro Results:
09/20/24 20:42 Wound Culture - Final
Foot - Right S aureus-Methicillin Sensitive
Gram Stain - Final
09/21/24 11:38 Blood Culture - Preliminary
Blood/Venous No Growth in 72 hours- Final report to follow
09/21/24 10:53 Blood Culture - Preliminary
Blood/Venous No Growth in 72 hours- Final report to follow
09/22/24 14:45 Wound Culture - Preliminary
Toe S aureus-Methicillin Sensitive
Gram Stain - Preliminary
09/22/24 14:45 Anaerobic Culture - Preliminary
Toe Culture pending. Anaerobic cultures are examined after 3
days incubation. Additional information to follow.
09/20/24 20:42 Blood Culture - Preliminary
Blood/Venous S aureus-Methicillin Sensitive
Gram Stain - Preliminary
09/20/24 16:59 Blood Culture - Final
Blood/Venous S aureus-Methicillin Sensitive
Gram Stain - Final
09/21/24 05:26 MRSA Screen - Final
Nose No Methicillin Resistant Staphylococcus aureus isolated.
09/21/24 02:52 Influenza Types A & B (JONATHON) - Final
Nasal Swab Negative for Influenza A & B, NAAT
Negative results must be combined with clinical observations
and patient history.
Nucleic Acid Amplification test (NAAT)performed on the
[employer] platform.
09/21/24 MRI Right LE: Osteomyelitis involving the head of the fifth metatarsal with probable septic fifth metatarsophalangeal joint.
09/21/24 CT chest: Subtle linear densities within the right middle lobe and right lower lobe, compatible with linear atelectasis, new since CT of the abdomen and pelvis of July 05, 2022. There is no evidence of lung consolidation that would be
suggestive of pneumonia. No evidence for lung mass.
09/20/24 Right Foot XRAY: Soft tissue wound lateral to the right 5th MTP joint. Probable acute on chronic osteomyelitis in the 5th metatarsal head and base of the proximal phalanx of the 5th toe with suggestion of a mild interval increase in osseous
erosion since 08/22/2018.
09/06/24 WBC scan right foot: Small amount of increased white blood cell activity in the region of the right 5th metatarsal head which is suggestive of acute osteomyelitis given the focal intensely increased radiopharmaceutical activity in this
region on the bone scan performed 08/30/2024.
[2024-09-25 11:40] LABS: Glucose - Point of Care 224 mg/dl (70-99)
[2024-09-25] MEDS: NOVOLOG FLEXPEN-MODERATE RESISTANCE 3 UNITS SC ×2 (12:16→17:12)
[2024-09-25 15:25] VITALS: BP 121/75
[2024-09-25] MEDS: FLOMAX 0.8 MG PO (16:34)
[2024-09-25 17:05] LABS: Glucose - Point of Care 203 mg/dl (70-99)
[2024-09-25] MEDS: LIPITOR 10 MG PO (21:13)
[2024-09-25] MEDS: ZYLOPRIM 300 MG PO (21:14)
[2024-09-25] MEDS: FLUSH (NSS) 2 FLUSH IV (21:15)
[2024-09-25 21:53] LABS: Glucose - Point of Care 283 mg/dl (70-99)
[2024-09-25 23:15] VITALS: BP 116/54
[2024-09-25] MEDS: TYLENOL 650 MG PO (23:22)
[2024-09-26] VITALS (8 sets, daily range): BP systolic 109–130; BP diastolic 62–79
[2024-09-26] MEDS: ANCEF 10 IV ×3 (05:43→21:27)
[2024-09-26] MEDS: FLUSH (NSS) 2 FLUSH IV (05:43)
[2024-09-26 06:20] LABS: Glucose - Point of Care 175 mg/dl (70-99)
[2024-09-26] MEDS: TYLENOL 650 MG PO (06:20)
[2024-09-26] MEDS: NOVOLOG FLEXPEN-MODERATE RESISTANCE SC ×2 (06:23→12:20)
[2024-09-26 07:19] LABS: Hematocrit 45.3 % (39.0-52.0); Hemoglobin 15.2 g/dL (13.0-18.0); Mean Corp Hgb Conc. 33.6 g/dL (33.0-37.0); Mean Corpuscular Volume 91.9 fL (80.0-94.0); Platelet Count 290 10^3/uL (130-400); Red Cell Dist. Width 13.2 % (11.5-14.5)
[2024-09-26 07:37] LABS: Blood Urea Nitrogen 25 mg/dl (9-20); Calcium 9.6 mg/dl (8.4-10.2); Carbon Dioxide 26 mmol/L (22-30); Chloride 104 mmol/L (98-107); Estimated Creatinine Clearance 65 ml/min; Glucose 187 mg/dl (70-99); Potassium 4.1 mmol/L (3.5-5.1); Sodium 140 mmol/L (135-145); eGFR > 60.00
[2024-09-26] MEDS: TIMOPTIC 0.5% OPHTHALMIC SOLUTION 1 DROP RIGHT EYE ×2 (08:01→20:17)
[2024-09-26] MEDS: PROSCAR 5 MG PO (08:01)
[2024-09-26] MEDS: LYRICA 300 MG PO ×2 (08:01→20:17)
[2024-09-26] MEDS: TRUSOPT 2% OPHTHALMIC SOLUTION 1 DROP RIGHT EYE ×2 (08:01→20:17)
[2024-09-26] MEDS: FARXIGA 10 MG PO (08:02)
[2024-09-26 12:03] LABS: Glucose - Point of Care 171 mg/dl (70-99)
--- NOTE | 2024-09-26 12:36 | W.PN.ID1 ---
Date of Service
Date of Service: September 26, 2024
Today's Communication
- Continue cefazolin 2g IV q8 through 10/18/24.
- Place midline.
- Infusion sheet submitted to case management.
Assessment / Plan
# Right 5th met head infected wound cellulitis with underlying osteomyelitis
# MSSA bacteremia - foot source
# s/p Sepsis, fever, leukocytosis due to bacteremia/osteo
# DM with neuropathy
- repeat blood cx's neg to date.
- fever resolved
- TTE: no vegetation
- 09/23/11 s/p s/p openRight partial 5th ray amputation
- For delayed closure today
- OR foot cx MSSA
- Continue cefazolin 2g IV q8 through 10/18/24.
- Place midline.
- Infusion sheet submitted to case management.
# Conditions [employer]
Diabetes mellitus
Neuropathy
Atrial fibrillation
Gout
Dyslipidemia
BPH
Nephrolithiasis
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
Left 5th metatarsal resection (02/2022)
Chief Complaint
-: Cellulitis and Bacteremia
Vital Signs / Physical Exam
Vital Signs
Vital Signs
Temp Pulse Resp BP Pulse Ox
98.1 F 74 18 121/69 97
09/26/24 07:20 09/26/24 07:20 09/26/24 07:20 09/26/24 07:20 09/26/24 07:20
Physical Exam
Constitutional: No Acute Distress and Comfortable
Cardiovascular: Regular Rate and S1/S2
Pulmonary: Clear
Gastrointestinal: Soft, Non Tender and Non Distended
Genito-Urinary: Negative CVA Tenderness
Extremities: Negative Edema
Wound: Other (R Foot dressing dry. )
Neurological: AO x 3
Objective Data
Lab Data
Lab Results
09/26/24 06:20
09/26/24 06:20
ESR 38 mm/hour (0-20) H 09/21/24 06:48
Estimated Creat Clear 65 ml/min 09/26/24 06:20
Lactic Acid 1.4 mmol/L (0.7-2.0) 09/20/24 20:42
Total Bilirubin 1.1 mg/dl (0.2-1.3) 09/21/24 06:48
AST 15 U/L (17-59) L 09/21/24 06:48
ALT 14 U/L (0-50) 09/21/24 06:48
Alkaline Phosphatase 56 U/L (38-126) 09/21/24 06:48
C-Reactive Protein 192.10 mg/L (0.0-10.00) H 09/21/24 06:48
Most recent labs reviewed.
Micro Results:
09/21/24 11:38 Blood Culture - Final
Blood/Venous No Growth - Final Report
09/21/24 10:53 Blood Culture - Final
Blood/Venous No Growth - Final Report
09/22/24 14:45 Anaerobic Culture - Preliminary
Toe NO ANAEROBES ISOLATED
09/20/24 20:42 Wound Culture - Final
Foot - Right S aureus-Methicillin Sensitive
Gram Stain - Final
09/22/24 14:45 Wound Culture - Preliminary
Toe S aureus-Methicillin Sensitive
Gram Stain - Preliminary
09/20/24 20:42 Blood Culture - Preliminary
Blood/Venous S aureus-Methicillin Sensitive
Gram Stain - Preliminary
09/20/24 16:59 Blood Culture - Final
Blood/Venous S aureus-Methicillin Sensitive
Gram Stain - Final
09/21/24 05:26 MRSA Screen - Final
Nose No Methicillin Resistant Staphylococcus aureus isolated.
09/21/24 02:52 Influenza Types A & B (JONATHON) - Final
Nasal Swab Negative for Influenza A & B, NAAT
Negative results must be combined with clinical observations
and patient history.
Nucleic Acid Amplification test (NAAT)performed on the
[employer] platform.
09/21/24 MRI Right LE: Osteomyelitis involving the head of the fifth metatarsal with probable septic fifth metatarsophalangeal joint.
09/21/24 CT chest: Subtle linear densities within the right middle lobe and right lower lobe, compatible with linear atelectasis, new since CT of the abdomen and pelvis of July 05, 2022. There is no evidence of lung consolidation that would be
suggestive of pneumonia. No evidence for lung mass.
09/20/24 Right Foot XRAY: Soft tissue wound lateral to the right 5th MTP joint. Probable acute on chronic osteomyelitis in the 5th metatarsal head and base of the proximal phalanx of the 5th toe with suggestion of a mild interval increase in osseous
erosion since 08/22/2018.
09/06/24 WBC scan right foot: Small amount of increased white blood cell activity in the region of the right 5th metatarsal head which is suggestive of acute osteomyelitis given the focal intensely increased radiopharmaceutical activity in this
region on the bone scan performed 08/30/2024.
--- NOTE | 2024-09-26 13:20 | W.PN.HOSP.TC ---
Today's Communication/Plan
-
OR
IV abx
Picc
Discharge planning, likely SNF rehab on IV antibiotics
Assessment / Plan
Assessment / Plan
Impression:
78yo M with PMHx of L foot OM s/p toe amputation, gout, BPH, DM, HLD, Afib on Eliquis came with worsening swelling in his R foot. XR showed Soft tissue wound lateral to the right 5th MTP joint and probable acute on chronic OM in the 5th metatarsal.
Patient was previously followed by and planned for eventual amputation by as per his words. Also developed 2days of cough and chills
Right fifth metatarsal osteomyelitis
Methicillin sensitive staphylococcal bacteremia
Sepsis present on admission
Mild nonproductive cough with no evidence for respiratory infection
Other conditions:
Persistent atrial fibrillation
Anticoagulation with Eliquis
Diabetes type 2 with neuropathy.
BPH
Dyslipidemia
Gout
Glaucoma
Plan:
Right fifth metatarsal osteomyelitis present on preadmission imaging
MRI R FOOT WITH Osteomyelitis involving the head of the fifth metatarsal with probable septic fifth metatarsophalangeal joint.
Podiatry input appreciated.
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
s/p right foot debridement and delayed primary closure on 09/26
Nonweightbearing to right lower extremity. Pain control.
Staphylococcal bacteremia sensitivity noted. Wound culture also with staphylococcal.
Patient reported chills day prior to admission.
Repeated blood cultures are negative so far
Afebrile Normal WBC
Echo : no evidence of vegetation seen
Vancomycin and Zosyn discontinued per antibiotic de-escalated to cefazolin.
Plan is to complete IV antibiotics through 10/18/24.
Picc to be placed
ID consultation
Presentation with mild cough and congestion.
Initial chest x-ray with questionable left lower lobe infiltrate.
CT scan of the chest ordered with concern for septic embolization, although does not confirm any focal infiltrates. Noted lingular atelectasis.
Diabetes type 2 with neuropathy.
Preadmission regimen including Ozempic, Jardiance, metformin, glimepiride
Update hemoglobin A1c at 6.2.
Basal bolus protocol with serial Accu-Cheks.
Hold oral medications except SGLT2 inhibitor
Continue Lyrica
Persistent atrial fibrillation
Not on any arrhythmics or rate control medications prior to presentation
Continue Eliquis
BPH on Flomax and Proscar
Monitor for retention
Gout on allopurinol
DVT prophylaxis continue with Eliquis
Anticipated Discharge: 24 - 48 hours
Subjective/Interval History
-
Date of Service: September 26, 2024
Objective Data
-
Labs:
Laboratory Results
09/26/24
06:20
WBC 10.1
Hgb 15.2 D
Hct 45.3
Plt Count 290 D
Sodium 140
Potassium 4.1
Chloride 104
Carbon Dioxide 26
BUN 25 H
Creatinine 1.0
Glucose 187 H
Calcium 9.6
Vital Signs:
Vital Signs
Temp Pulse Resp BP Pulse Ox
98.1 F 74 18 121/69 97
09/26/24 07:20 09/26/24 07:20 09/26/24 07:20 09/26/24 07:20 09/26/24 07:20
I&O
09/25/24 09/26/24 09/27/24
06:59 06:59 06:59
Intake Total 1226 / 1226 480 / 480 480 / 480
Balance 1226 / 1226 480 / 480 480 / 480
Physical Exam
-
General: Well Developed and No Apparent Distress
HEENT: Normocephalic, Atraumatic and Moist Mucous Membranes
Respiratory: Clear to Auscultation
Cardiac: Regular Rhythm and S1/S2; Negative Murmur, Rub or Gallop
GI: Soft, Nontender, Nondistended and Normal Bowel Sounds; Negative Organomegaly
Rectal: Deferred by Provider
Musculoskeletal: No Clubbing and No Cyanosis
Skin: Other (Right foot covered in surgical dressing. Intact sensation to the toes.)
Neuro: Awake, AO x 3 and Nonfocal/Grossly Intact
Psych: Calm
--- NOTE | 2024-09-26 15:01 | CM ---
Reviewed the chart notes and spoke with the patient and spouse at the bedside. Patient just returned from OR for delayed primary closure. Discussed discharge options. Home with VN services and IV abx or SNF for rehab and IV abx. Both agreed with
SNF/rehab for IV abx. Referrals sent via [facility] with [facility]. CM continues to be available to patient/family and is monitoring medical plan for needs at discharge.
Plan: Discharge to SNF/rehab when medically stable. No auth required.
[2024-09-26 16:13] LABS: Glucose - Point of Care 153 mg/dl (70-99)
[2024-09-26] MEDS: FLOMAX 0.8 MG PO (17:09)
[2024-09-26] MEDS: NOVOLOG FLEXPEN-MODERATE RESISTANCE 1 UNITS SC (17:10)
[2024-09-26] MEDS: LIPITOR 10 MG PO (21:28)
[2024-09-26] MEDS: ZYLOPRIM 300 MG PO (21:28)
[2024-09-26 22:40] LABS: Glucose - Point of Care 283 mg/dl (70-99)
[2024-09-27 04:00] VITALS: BP 108/59
[2024-09-27] MEDS: TYLENOL 650 MG PO (04:41)
[2024-09-27] MEDS: SENOKOT-S 1 TABLET PO (04:41)
[2024-09-27] MEDS: ANCEF 10 IV ×2 (06:12→13:17)
[2024-09-27 07:20] VITALS: BP 109/72
[2024-09-27 07:46] LABS: Glucose - Point of Care 213 mg/dl (70-99)
[2024-09-27] MEDS: LYRICA 300 MG PO (08:49)
[2024-09-27] MEDS: FARXIGA 10 MG PO (08:49)
[2024-09-27] MEDS: PROSCAR 5 MG PO (08:49)
[2024-09-27] MEDS: NOVOLOG FLEXPEN-MODERATE RESISTANCE 3 UNITS SC ×2 (08:49→13:14)
[2024-09-27] MEDS: TIMOPTIC 0.5% OPHTHALMIC SOLUTION 1 DROP RIGHT EYE (08:50)
[2024-09-27] MEDS: TRUSOPT 2% OPHTHALMIC SOLUTION 1 DROP RIGHT EYE (08:50)
[2024-09-27 11:05] VITALS: BP 115/73
[2024-09-27 11:40] LABS: Glucose - Point of Care 245 mg/dl (70-99)
--- NOTE | 2024-09-27 11:49 | W.PN.HOSP.TC ---
Today's Communication/Plan
-
Wound care
Physical therapy
IV antibiotics as outlined
PICC line place
Disposition pending to senior care facility on IV antibiotics pending bed availability
Assessment / Plan
Assessment / Plan
Impression:
78yo M with PMHx of L foot OM s/p toe amputation, gout, BPH, DM, HLD, Afib on Eliquis came with worsening swelling in his R foot. XR showed Soft tissue wound lateral to the right 5th MTP joint and probable acute on chronic OM in the 5th metatarsal.
Patient was previously followed by and planned for eventual amputation by as per his words. Also developed 2days of cough and chills
Right fifth metatarsal osteomyelitis
Methicillin sensitive staphylococcal bacteremia
Sepsis present on admission
Mild nonproductive cough with no evidence for respiratory infection
Other conditions:
Persistent atrial fibrillation
Anticoagulation with Eliquis
Diabetes type 2 with neuropathy.
BPH
Dyslipidemia
Gout
Glaucoma
Plan:
Right fifth metatarsal osteomyelitis present on preadmission imaging
MRI R FOOT WITH Osteomyelitis involving the head of the fifth metatarsal with probable septic fifth metatarsophalangeal joint.
Podiatry input appreciated.
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
s/p right foot debridement and delayed primary closure on 09/26
Nonweightbearing to right lower extremity. Pain control.
Staphylococcal bacteremia sensitivity noted. Wound culture also with staphylococcal.
Patient reported chills day prior to admission.
Repeated blood cultures are negative so far
Afebrile Normal WBC
Echo : no evidence of vegetation seen
Vancomycin and Zosyn discontinued per antibiotic de-escalated to cefazolin.
Plan is to complete IV antibiotics through 10/18/24.
Picc to be placed
ID consultation
Presentation with mild cough and congestion.
Initial chest x-ray with questionable left lower lobe infiltrate.
CT scan of the chest ordered with concern for septic embolization, although does not confirm any focal infiltrates. Noted lingular atelectasis.
Diabetes type 2 with neuropathy.
Preadmission regimen including Ozempic, Jardiance, metformin, glimepiride
Update hemoglobin A1c at 6.2.
Basal bolus protocol with serial Accu-Cheks.
Hold oral medications except SGLT2 inhibitor
Continue Lyrica
Persistent atrial fibrillation
Not on any arrhythmics or rate control medications prior to presentation
Continue Eliquis
BPH on Flomax and Proscar
Monitor for retention
Gout on allopurinol
DVT prophylaxis continue with Eliquis
Anticipated Discharge: Within 24 hours
Subjective/Interval History
-
Date of Service: September 27, 2024
Objective Data
-
Vital Signs:
Vital Signs
Temp Pulse Resp BP Pulse Ox
97.9 F 85 18 109/72 95
09/27/24 07:20 09/27/24 07:20 09/27/24 07:20 09/27/24 07:20 09/27/24 07:20
I&O
09/26/24 09/27/24 09/28/24
06:59 06:59 06:59
Intake Total 480 / 480 1440 / 1440
Balance 480 / 480 1440 / 1440
Physical Exam
-
General: Well Developed and No Apparent Distress
HEENT: Normocephalic, Atraumatic and Moist Mucous Membranes
Respiratory: Clear to Auscultation
Cardiac: Regular Rhythm and S1/S2; Negative Murmur, Rub or Gallop
GI: Soft, Nontender, Nondistended and Normal Bowel Sounds; Negative Organomegaly
Rectal: Deferred by Provider
Musculoskeletal: No Clubbing and No Cyanosis
Skin: Other (Right foot covered in surgical dressing. Intact sensation to the toes.)
Neuro: Awake, AO x 3 and Nonfocal/Grossly Intact
Psych: Calm
--- NOTE | 2024-09-27 11:58 | W.PN.ID1 ---
Date of Service
Date of Service: September 27, 2024
Today's Communication
- Continue cefazolin 2g IV q8 through 10/18/24.
Assessment / Plan
# Right 5th met head infected wound cellulitis with underlying osteomyelitis
# MSSA bacteremia - foot source
# s/p Sepsis, fever, leukocytosis due to bacteremia/osteo
# DM with neuropathy
- repeat blood cx's neg to date.
- fever resolved
- TTE: no vegetation
- 09/23/11 s/p s/p openRight partial 5th ray amputation
- 09/26 s/p delayed primary closure
- OR foot cx MSSA
- Continue cefazolin 2g IV q8 through 10/18/24.
- Infusion sheet submitted to case management.
# Conditions [employer]
Diabetes mellitus
Neuropathy
Atrial fibrillation
Gout
Dyslipidemia
BPH
Nephrolithiasis
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
Left 5th metatarsal resection (02/2022)
Chief Complaint
-: Cellulitis and Bacteremia
Subjective / Review of Systems
Right foot feels stiff.
Vital Signs / Physical Exam
Vital Signs
Vital Signs
Temp Pulse Resp BP Pulse Ox
97.9 F 85 18 109/72 95
09/27/24 07:20 09/27/24 07:20 09/27/24 07:20 09/27/24 07:20 09/27/24 07:20
Physical Exam
Constitutional: No Acute Distress
Pulmonary: Clear
Gastrointestinal: Soft, Non Tender and Non Distended
Genito-Urinary: Negative CVA Tenderness
Wound: Other (right foot dressing dry)
Neurological: AO x 3
Lines: Other (RUE midline intact)
Objective Data
Lab Data
Lab Results
09/26/24 06:20
09/26/24 06:20
ESR 38 mm/hour (0-20) H 09/21/24 06:48
Estimated Creat Clear 65 ml/min 09/26/24 06:20
Lactic Acid 1.4 mmol/L (0.7-2.0) 09/20/24 20:42
Total Bilirubin 1.1 mg/dl (0.2-1.3) 09/21/24 06:48
AST 15 U/L (17-59) L 09/21/24 06:48
ALT 14 U/L (0-50) 09/21/24 06:48
Alkaline Phosphatase 56 U/L (38-126) 09/21/24 06:48
C-Reactive Protein 192.10 mg/L (0.0-10.00) H 09/21/24 06:48
Most recent labs reviewed.
Micro Results:
09/22/24 14:45 Wound Culture - Final
Toe S aureus-Methicillin Sensitive
Gram Stain - Final
09/22/24 14:45 Anaerobic Culture - Final
Toe NO ANAEROBES ISOLATED
09/20/24 20:42 Blood Culture - Final
Blood/Venous S aureus-Methicillin Sensitive
Gram Stain - Final
09/21/24 11:38 Blood Culture - Final
Blood/Venous No Growth - Final Report
09/21/24 10:53 Blood Culture - Final
Blood/Venous No Growth - Final Report
09/20/24 20:42 Wound Culture - Final
Foot - Right S aureus-Methicillin Sensitive
Gram Stain - Final
09/20/24 16:59 Blood Culture - Final
Blood/Venous S aureus-Methicillin Sensitive
Gram Stain - Final
09/21/24 05:26 MRSA Screen - Final
Nose No Methicillin Resistant Staphylococcus aureus isolated.
09/21/24 02:52 Influenza Types A & B (JONATHON) - Final
Nasal Swab Negative for Influenza A & B, NAAT
Negative results must be combined with clinical observations
and patient history.
Nucleic Acid Amplification test (NAAT)performed on the
[employer] platform.
09/21/24 MRI Right LE: Osteomyelitis involving the head of the fifth metatarsal with probable septic fifth metatarsophalangeal joint.
09/21/24 CT chest: Subtle linear densities within the right middle lobe and right lower lobe, compatible with linear atelectasis, new since CT of the abdomen and pelvis of July 05, 2022. There is no evidence of lung consolidation that would be
suggestive of pneumonia. No evidence for lung mass.
09/20/24 Right Foot XRAY: Soft tissue wound lateral to the right 5th MTP joint. Probable acute on chronic osteomyelitis in the 5th metatarsal head and base of the proximal phalanx of the 5th toe with suggestion of a mild interval increase in osseous
erosion since 08/22/2018.
09/06/24 WBC scan right foot: Small amount of increased white blood cell activity in the region of the right 5th metatarsal head which is suggestive of acute osteomyelitis given the focal intensely increased radiopharmaceutical activity in this
region on the bone scan performed 08/30/2024.
[2024-09-27] MEDS: FLUSH (NSS) 2 FLUSH IV (13:17)
--- NOTE | 2024-09-27 13:50 | W.DCSUMMARY ---
Discharge Summary
Discharge Data
Date of Admission: 09/21/24
Date of Discharge: 09/27/24
-
Pending Results: Yes
Hospital Course
78yo M with PMHx of L foot OM s/p toe amputation, gout, BPH, DM, HLD, Afib on Eliquis came with worsening swelling in his R foot. XR showed Soft tissue wound lateral to the right 5th MTP joint and probable acute on chronic OM in the 5th metatarsal.
Patient was previously followed by and planned for eventual amputation by as per his words. Also developed 2days of cough and chills
Right fifth metatarsal osteomyelitis
Methicillin sensitive staphylococcal bacteremia
Sepsis present on admission
Mild nonproductive cough with no evidence for respiratory infection
Other conditions:
Persistent atrial fibrillation
Anticoagulation with Eliquis
Diabetes type 2 with neuropathy.
BPH
Dyslipidemia
Gout
Glaucoma
Plan:
Right fifth metatarsal osteomyelitis present on preadmission imaging
MRI R FOOT WITH Osteomyelitis involving the head of the fifth metatarsal with probable septic fifth metatarsophalangeal joint.
Podiatry input appreciated.
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
s/p right foot debridement and delayed primary closure on 09/26
Nonweightbearing to right lower extremity. Pain control.
SNF rehab placement
Staphylococcal bacteremia sensitivity noted. Wound culture also with staphylococcal.
Patient reported chills day prior to admission.
Repeated blood cultures are negative so far
Afebrile Normal WBC
Echo : no evidence of vegetation seen
Vancomycin and Zosyn discontinued per antibiotic de-escalated to cefazolin.
Plan is to complete IV antibiotics through 10/18/24.
Picc to be placed
Presentation with mild cough and congestion.
Initial chest x-ray with questionable left lower lobe infiltrate.
CT scan of the chest ordered with concern for septic embolization, although does not confirm any focal infiltrates. Noted lingular atelectasis.
Diabetes type 2 with neuropathy.
Preadmission regimen including Ozempic, Jardiance, metformin, glimepiride
Update hemoglobin A1c at 6.2.
Basal bolus protocol with serial Accu-Cheks.
Resume oral medications upon discharge
Continue Lyrica
Persistent atrial fibrillation
Not on any arrhythmics or rate control medications prior to presentation
Continue Eliquis
BPH on Flomax and Proscar
Monitor for retention
Gout on allopurinol
DVT prophylaxis continue with Eliquis
Discharge Plan
-
Patient Disposition: Shelter/SNF
Discharge Diagnosis/Procedures: Right foot osteomyelitis
Sepsis
Staphylococcal bacteremia
Condition: Good
Diet: Diabetic, Carb Controlled
Activity Restrictions/Additional Instructions:
Wound Care Instructions
R foot local care and weight bear restrictions as per Dr. Best's instructions.
Follow up with Dr. Best.
Referrals:
Chuck Durand MD [Family Provider, Internal Medicine]
Maurisio Best DPM [Active, Podiatry]
Prescriptions:
New
cefazolin 10 gram Recon Soln
2 g IV Q8H Qty: 60 0RF
Rx Instructions:
through 10/18/24
tramadol 50 mg Tablet
50 mg PO Q6HPRN PRN (Reason: mod-severe pain) Qty: 15 0RF
Continued
allopurinol 300 MG tablet
300 mg PO HS
finasteride 5 MG tablet
5 mg PO DAILY
glimepiride 4 MG tablet
8 mg PO DAILY
Eliquis 5 MG tablet
5 mg PO BID
tamsulosin 0.4 MG capsule
0.8 mg PO QPM
Jardiance 25 mg Tablet
25 mg PO DAILY
simvastatin 20 mg Tablet
20 mg PO HS
acetaminophen [Tylenol 8 Hour] 650 mg Tablet Extended Release
1,300 mg PO Q8HPRN PRN (Reason: mild pain)
dorzolamide-timolol 22.3-6.8 mg/mL drops
1 drp RIGHT EYE BID
metformin 500 mg tablet extended release 24 hr
1,000 mg PO BID
coenzyme Q10 [CoQ-10] 100 mg Capsule
100 mg PO HS
Ozempic 1 mg/dose (4 mg/3 mL) Pen Injector
1 mg SC BYRNES
pregabalin 300 mg capsule
300 mg PO BID Qty: 30 0RF
Discharge Orders:
Discharge Patient (As Directed); Ordered 09/27/24
Ordered By: Satish Justice
Discharge Date and Time
Print Language: ROMANIAN
--- NOTE | 2024-09-27 14:37 | CM ---
CM reviewed pt with Dr Justice, pt ready for dc
Will need IV abx at SNF
Confirmed bed availability with [facility] admissions/[facility]
She confirmed acceptance with midline
Bedside meeting with pt and spouse
In agreement with plan
IMM verbally reviewed- copy provided
Transport discussed- pt does not have medical necessity for BLS
In agreement with WC van and $90 fees
Number provided for payment for ride
Pt and spouse questioning if foot require dressing change prior to dc
TT/Dr Justice and Dr Best with pt concern
Midline info sent via [facility] to [facility] per request
Discharge Disposition- [facility] via [facility] can (3:30pm pickup)
[2024-09-27 15:16] VITALS: BP 117/73
== END 2024-09-27 15:39 | DRG 854 ==
LOC: 2 SOUTH 03:10
PROVIDERS: Emergency Medicine; Hospitalist; Internal Medicine; Nurse Practitioner; ADMITTING PHYSICIAN Internal Medicine; ATTENDING PHYSICIAN Internal Medicine; CONSULT PHYSICIAN Internal Medicine Infectious Disease; CONSULT PHYSICIAN Student in an Organized Health Care Education/Training Program; EMERGENCY PHYSICIAN Emergency Medicine; FAMILY PHYSICIAN Internal Medicine
PROC: 0J9Q0ZX Drainage of Right Foot Subcutaneous Tissue and Fascia, Open Approach, Diagnostic (ICD-10-PCS; 2024-09-22)
PROC: 0Y6M0ZF Detachment at Right Foot, Partial 5th Ray, Open Approach (ICD-10-PCS; 2024-09-22)
PROC: 0QBL0ZZ Excision of Right Tarsal, Open Approach (ICD-10-PCS; 2024-09-26)
DX: A41.01 Sepsis due to Methicillin susceptible Staphylococcus aureus (principal); I48.19 Other persistent atrial fibrillation; M00.071 Staphylococcal arthritis, right ankle and foot; M86.171 Other acute osteomyelitis, right ankle and foot; J98.11 Atelectasis; L02.611 Cutaneous abscess of right foot; E11.69 Type 2 diabetes mellitus with other specified complication; E11.40 Type 2 diabetes mellitus with diabetic neuropathy, unspecified; M10.9 Gout, unspecified; E78.00 Pure hypercholesterolemia, unspecified; B95.61 Methicillin susceptible Staphylococcus aureus infection as the cause of diseases classified elsewhere; H40.9 Unspecified glaucoma; N40.0 Benign prostatic hyperplasia without lower urinary tract symptoms; Z79.01 Long term (current) use of anticoagulants; Z90.49 Acquired absence of other specified parts of digestive tract; Z86.73 Personal history of transient ischemic attack (TIA), and cerebral infarction without residual deficits; Z87.442 Personal history of urinary calculi; Z87.01 Personal history of pneumonia (recurrent); Z79.84 Long term (current) use of oral hypoglycemic drugs; Z79.85 Long-term (current) use of injectable non-insulin antidiabetic drugs; Z89.422 Acquired absence of other left toe(s); Z88.8 Allergy status to other drugs, medicaments and biological substances; Z91.018 Allergy to other foods; Z11.52 Encounter for screening for COVID-19
CPT/HCPCS: 71046; 71250; 73630; 73718; 80048; 80053; 82962; 83036; 83605; 85025; 85027; 85652; 86140; 87040; 87070; 87075; 87147; 87154; 87186; 87205; 87502; 87811; 88304; 88305; 88311; 93306; 96365; 96375; 97116; 97162; 97166; 97530; 99284; Q9950

== ENCOUNTER → 2024-09-30 10:44 | Outpatient (REF) | payer OTHER, MEDICARE, SELFPAY ==
[2024-09-30 11:07] LABS: Hematocrit 37.6 % (39.0-52.0); Hemoglobin 12.8 g/dL (13.0-18.0); Mean Corp Hgb Conc. 34.0 g/dL (33.0-37.0); Mean Corpuscular Volume 91.3 fL (80.0-94.0); Platelet Count 291 10^3/uL (130-400); Red Cell Dist. Width 13.1 % (11.5-14.5)
[2024-09-30 11:13] LABS: Blood Urea Nitrogen 22 mg/dl (9-20); Calcium 8.9 mg/dl (8.4-10.2); Carbon Dioxide 21 mmol/L (22-30); Chloride 111 mmol/L (98-107); Glucose 179 mg/dl (70-99); Potassium 4.3 mmol/L (3.5-5.1); Sodium 140 mmol/L (135-145); eGFR > 60.00
== END ==
LOC: OLABP 10:44
PROVIDERS: ATTENDING PHYSICIAN Family Medicine
DX: A41.02 Sepsis due to Methicillin resistant Staphylococcus aureus (principal); L02.611 Cutaneous abscess of right foot; E11.621 Type 2 diabetes mellitus with foot ulcer; E78.5 Hyperlipidemia, unspecified; I48.19 Other persistent atrial fibrillation; L03.115 Cellulitis of right lower limb; M00.871 Arthritis due to other bacteria, right ankle and foot; M10.9 Gout, unspecified; M86.179 Other acute osteomyelitis, unspecified ankle and foot
CPT/HCPCS: 36415; 80048; 85027

== ENCOUNTER → 2024-10-05 10:28 | Outpatient (REF) | payer OTHER, MEDICARE, SELFPAY ==
[2024-10-05 11:08] LABS: Hematocrit 38.5 % (39.0-52.0); Hemoglobin 12.9 g/dL (13.0-18.0); Mean Corp Hgb Conc. 33.5 g/dL (33.0-37.0); Mean Corpuscular Volume 90.4 fL (80.0-94.0); Platelet Count 240 10^3/uL (130-400); Red Cell Dist. Width 13.1 % (11.5-14.5)
== END ==
LOC: OLABP 10:28
PROVIDERS: ATTENDING PHYSICIAN Family Medicine
DX: A41.02 Sepsis due to Methicillin resistant Staphylococcus aureus (principal); L02.611 Cutaneous abscess of right foot; E11.621 Type 2 diabetes mellitus with foot ulcer; E78.5 Hyperlipidemia, unspecified; I48.19 Other persistent atrial fibrillation; L03.115 Cellulitis of right lower limb; M00.871 Arthritis due to other bacteria, right ankle and foot; M10.9 Gout, unspecified; M86.179 Other acute osteomyelitis, unspecified ankle and foot
CPT/HCPCS: 36415; 85027

== ENCOUNTER → 2024-10-07 15:51 | Outpatient (REF) | payer OTHER, MEDICARE, SELFPAY ==
[2024-10-07 16:33] LABS: Uric Acid 3.2 mg/dl (3.5-8.5)
== END ==
LOC: OLABP 15:51
PROVIDERS: ATTENDING PHYSICIAN Family Medicine
DX: A41.02 Sepsis due to Methicillin resistant Staphylococcus aureus (principal); L02.611 Cutaneous abscess of right foot; E11.621 Type 2 diabetes mellitus with foot ulcer; E78.5 Hyperlipidemia, unspecified; I48.19 Other persistent atrial fibrillation; L03.115 Cellulitis of right lower limb; M00.871 Arthritis due to other bacteria, right ankle and foot; M10.9 Gout, unspecified; M86.179 Other acute osteomyelitis, unspecified ankle and foot
CPT/HCPCS: 36415; 84550

== ENCOUNTER → 2024-10-19 10:35 | Outpatient (REF) | payer OTHER, MEDICARE, SELFPAY ==
[2024-10-19 12:38] LABS: Hematocrit 40.0 % (39.0-52.0); Hemoglobin 13.2 g/dL (13.0-18.0); Mean Corp Hgb Conc. 33.0 g/dL (33.0-37.0); Mean Corpuscular Volume 90.7 fL (80.0-94.0); Nucleated Red Blood Cells % 0 % (-); Platelet Count 178 10^3/uL (130-400); Red Cell Dist. Width 13.7 % (11.5-14.5)
[2024-10-19 13:34] LABS: Blood Urea Nitrogen 21 mg/dl (9-20); Calcium 8.9 mg/dl (8.4-10.2); Carbon Dioxide 24 mmol/L (22-30); Chloride 107 mmol/L (98-107); Glucose 133 mg/dl (70-99); Potassium 4.0 mmol/L (3.5-5.1); Sodium 138 mmol/L (135-145); eGFR > 60.00
== END ==
LOC: OLABP 10:35
PROVIDERS: ATTENDING PHYSICIAN Family Medicine
DX: M86.179 Other acute osteomyelitis, unspecified ankle and foot (principal); A41.02 Sepsis due to Methicillin resistant Staphylococcus aureus; L02.611 Cutaneous abscess of right foot; E11.621 Type 2 diabetes mellitus with foot ulcer; E78.5 Hyperlipidemia, unspecified; I48.19 Other persistent atrial fibrillation; L03.115 Cellulitis of right lower limb; M00.871 Arthritis due to other bacteria, right ankle and foot
CPT/HCPCS: 36415; 80048; 85025

== ENCOUNTER → 2024-10-26 09:56 | Outpatient (REF) | payer MEDICARE, OTHER, SELFPAY | LOC: RAD 09:56 | PROVIDERS: ATTENDING PHYSICIAN Internal Medicine | DX: M79.642 Pain in left hand (principal); M79.89 Other specified soft tissue disorders | CPT/HCPCS: 73130 ==

== ENCOUNTER 2024-12-12 11:28 | Outpatient (RCR) | payer MEDICARE, OTHER, SELFPAY | END 2024-12-12 23:59 | disposition home or self-care (01) | LOC: RPT 11:28 | PROVIDERS: ATTENDING PHYSICIAN Internal Medicine | DX: R26.89 Other abnormalities of gait and mobility (principal); M86.171 Other acute osteomyelitis, right ankle and foot; M54.2 Cervicalgia; I73.9 Peripheral vascular disease, unspecified; Z73.6 Limitation of activities due to disability; Z89.422 Acquired absence of other left toe(s) | CPT/HCPCS: 97110; 97112; 97163; 97530 ==

== ENCOUNTER → 2024-12-26 07:25 | Outpatient (REF) | payer MEDICARE, OTHER, SELFPAY ==
[2024-12-26 09:56] LABS: ALT (SGPT) 17 U/L (0-50); AST (SGOT) 20 U/L (17-59); Albumin 4.2 g/dl (3.5-5.0); Alkaline Phosphatase 68 U/L (38-126); Glucose 164 mg/dl (70-99); HDL Cholesterol 64 mg/dl; LDL Cholesterol, Calculated 37 mg/dl; Total Protein 7.0 g/dl (6.3-8.2); Very Low Density Lipoprotein 15 mg/dl (0-30)
[2024-12-26 10:43] LABS: Glycohemoglobin (HgbA1c) 6.3 % (4.0-5.6)
== END ==
LOC: REG 07:25
PROVIDERS: ATTENDING PHYSICIAN Internal Medicine
DX: E11.40 Type 2 diabetes mellitus with diabetic neuropathy, unspecified (principal); E11.59 Type 2 diabetes mellitus with other circulatory complications; Z79.84 Long term (current) use of oral hypoglycemic drugs; E66.3 Overweight; I10 Essential (primary) hypertension; E87.5 Hyperkalemia
CPT/HCPCS: 36415; 80061; 80076; 82947; 83036

== ENCOUNTER 2024-12-27 08:31 | Outpatient (RCR) | payer MEDICARE, OTHER, SELFPAY | END 2025-01-10 23:59 | disposition home or self-care (01) | LOC: ROT 08:31 | PROVIDERS: ATTENDING PHYSICIAN Internal Medicine | DX: R26.89 Other abnormalities of gait and mobility (principal); M86.171 Other acute osteomyelitis, right ankle and foot; M54.2 Cervicalgia; I73.9 Peripheral vascular disease, unspecified; Z73.6 Limitation of activities due to disability; Z89.422 Acquired absence of other left toe(s) | CPT/HCPCS: 97110; 97112; 97530 ==

== ENCOUNTER 2025-02-06 10:13 | Outpatient (RCR) | payer MEDICARE, OTHER, SELFPAY | END 2025-02-06 23:59 | disposition home or self-care (01) | LOC: ROT 10:13 | PROVIDERS: ATTENDING PHYSICIAN Internal Medicine | DX: R26.89 Other abnormalities of gait and mobility (principal); M86.171 Other acute osteomyelitis, right ankle and foot; M54.2 Cervicalgia; I73.9 Peripheral vascular disease, unspecified; Z73.6 Limitation of activities due to disability; Z89.422 Acquired absence of other left toe(s) | CPT/HCPCS: 97110; 97112 ==

== ENCOUNTER → 2025-02-28 09:30 | Outpatient (REF) | payer MEDICARE, OTHER, SELFPAY | LOC: RAD 09:30 | PROVIDERS: ATTENDING PHYSICIAN Surgery Vascular Surgery; FAMILY PHYSICIAN Internal Medicine | DX: I73.9 Peripheral vascular disease, unspecified (principal) | CPT/HCPCS: 93922; 93925 ==

== ENCOUNTER 2025-03-01 08:24 | Outpatient (RCR) | payer MEDICARE, OTHER, SELFPAY | END 2025-03-02 07:16 | disposition home or self-care (01) | LOC: ROT 08:24 | PROVIDERS: ATTENDING PHYSICIAN Internal Medicine | DX: R26.89 Other abnormalities of gait and mobility (principal); M86.171 Other acute osteomyelitis, right ankle and foot; M54.2 Cervicalgia; I73.9 Peripheral vascular disease, unspecified; Z73.6 Limitation of activities due to disability; Z89.422 Acquired absence of other left toe(s) | CPT/HCPCS: 97110; 97112; 97530 ==